=== PATIENT | male | born 1960 | race African-American/Black ===

== ENCOUNTER 2019-06-26 11:54 | Emergency (ER) | payer BC, OTHER ==
[2019-06-26 13:21] LABS: Basophils # (auto) 0.1 uL; Eosinophils % (auto) 0.9 % (0.0-7.0); Hemoglobin 13.8 g/dL (13.5-17.5); Lymphocytes # (auto) 2.1 uL; Monocytes # (auto) 0.4 uL; Monocytes % (auto) 7.2 % (0.0-12.0); White Blood Cell 5.5 10^3/uL (4.4-10.8)
[2019-06-26 13:24] LABS: Eosinophils # (auto) 0 uL; Hematocrit 41.9 % (41.0-53.0); Mean Corpuscular Hemoglobin 26.3 pg (28.0-32.0); Mean Corpuscular Hgb Conc. 32.9 g/dL (32.0-36.0); Mean Corpuscular Volume 79.9 fL (80.0-100.0); Neutrophils # (auto) 2.8 uL; Neutrophils % (auto) 51.9 % (37.0-80.0); Platelet Count (auto) 253 10^3/uL (140-450); Red Blood Cells 5.24 10^6/uL (4.5-5.90); Red Cell Distribution Width 13.5 % (11.8-14.3)
[2019-06-26 13:39] LABS: Chloride 104 mmol/L (98-107); Potassium 4.3 mmol/L (3.5-5.1); Sodium 136 mmol/L (136-145)
[2019-06-26 13:44] LABS: Alanine Aminotransferase 29 U/L (16-61); Albumin 3.7 g/dL (3.4-5.0); Anion Gap 5 (5-15); Aspartate Aminotransferase 11 U/L (15-37); BUN/Creatinine Ratio 15.4; Blood Urea Nitrogen 14 mg/dL (7-18); Calcium 8.7 mg/dL (8.5-10.1); Carbon Dioxide 27 mmol/L (21-32); GFR African American 109 mL/min; GFR Non-African American 90 mL/min
[2019-06-26 13:48] LABS: Alkaline Phosphatase 88 U/L (45-117); Bilirubin, Total 0.3 mg/dL (0.2-1.0); Total Protein 7.7 g/dL (6.4-8.2)
[2019-06-26 14:04] LABS: Glucose 405 mg/dL (74-106)
[2019-06-26] MEDS ORDERED: InsuLIN REG 1unit/0.01ml Soln (100units/ml) IV ONE (14:15)
[2019-06-26] MEDS ORDERED: SODIUM CHLORIDE 0.9% 1,000 ML IV ONE (14:15)
[2019-06-26 14:35] VITALS: BP 163/81
== END 2019-06-26 16:06 | disposition home or self-care (01) ==
LOC: ER 11:54
DX: E11.65 Type 2 diabetes mellitus with hyperglycemia (principal); R10.9 Unspecified abdominal pain; M19.90 Unspecified osteoarthritis, unspecified site; F12.10 Cannabis abuse, uncomplicated; Z87.891 Personal history of nicotine dependence
CPT/HCPCS: 36415; 70450; 71046; 80053; 83880; 84484; 85025; 93005; 96361; 96374

== ENCOUNTER 2020-04-05 15:52 | Emergency (ER) | payer BC ==
[~2020-04-05] VITALS: Ht 180.3 cm; Wt 117.0 kg
[2020-04-05 16:07] VITALS: BP 158/90
[2020-04-05] MEDS ORDERED: KETOROLAC TROMETH 60MG/2ML VIAL IM ONE (18:00)
== END 2020-04-05 18:24 | disposition home or self-care (01) ==
LOC: ER 15:52
DX: M48.061 Spinal stenosis, lumbar region without neurogenic claudication (principal); E27.8 Other specified disorders of adrenal gland; M54.16 Radiculopathy, lumbar region; E11.9 Type 2 diabetes mellitus without complications; E78.5 Hyperlipidemia, unspecified; I10 Essential (primary) hypertension; Z87.891 Personal history of nicotine dependence
CPT/HCPCS: 72131; 73562; 93005; 96372; 99284; J1885

== ENCOUNTER 2020-07-10 17:27 | Emergency (ER) | payer BC ==
[~2020-07-10] VITALS: Ht 180.3 cm; Wt 115.7 kg
[2020-07-10 22:23] VITALS: BP 145/90
[2020-07-10 22:43] LABS: Basophils # (auto) 0.1 10 ^3/uL (0-0.2); Basophils % (auto) 1.2 % (0.0-2.0); Eosinophils # (auto) 0.1 10 ^3/uL (0-0.8); Eosinophils % (auto) 1.9 % (0.0-7.0); Lymphocytes # (auto) 2.4 10 ^3/uL (0.4-5.4); Mean Corpuscular Volume 74.8 fL (80.0-100.0); Monocytes # (auto) 0.4 10 ^3/uL (0-1.3); Neutrophils # (auto) 2.5 10 ^3/uL (1.6-8.6); Nucleated Red Blood Cells % 0.1 %; Red Cell Distribution Width 16.1 % (11.8-14.3); White Blood Cell 5.5 10^3/uL (4.4-10.8)
[2020-07-10 22:45] LABS: Hematocrit 38.2 % (41.0-53.0); Hemoglobin 12.4 g/dL (13.5-17.5); Lymphocytes % (auto) 43.7 % (10.0-50.0); Mean Corpuscular Hemoglobin 24.2 pg (28.0-32.0); Mean Corpuscular Hgb Conc. 32.4 g/dL (32.0-36.0); Monocytes % (auto) 7.8 % (0.0-12.0); Neutrophils % (auto) 45.4 % (37.0-80.0); Red Blood Cells 5.11 10^6/uL (4.5-5.90)
[2020-07-10 23:28] LABS: Albumin 3.5 g/dL (3.4-5.0); Anion Gap 7 (5-15); Blood Urea Nitrogen 16 mg/dL (7-18); Calcium 8.4 mg/dL (8.5-10.1); Carbon Dioxide 24 mmol/L (21-32); Chloride 106 mmol/L (98-107); Glucose 257 mg/dL (74-106); Potassium 4.1 mmol/L (3.5-5.1); Sodium 137 mmol/L (136-145)
[2020-07-10 23:33] LABS: Alanine Aminotransferase 32 U/L (16-61); Alkaline Phosphatase 88 U/L (45-117); Aspartate Aminotransferase 12 U/L (15-37); BUN/Creatinine Ratio 19.8; Bilirubin, Total 0.4 mg/dL (0.2-1.0); GFR African American 125 mL/min; GFR Non-African American 103 mL/min; Total Protein 7.1 g/dL (6.4-8.2)
== END 2020-07-11 00:11 | disposition home or self-care (01) ==
LOC: ER 17:27
DX: J06.9 Acute upper respiratory infection, unspecified (principal); D64.9 Anemia, unspecified; E11.9 Type 2 diabetes mellitus without complications; I10 Essential (primary) hypertension; E78.5 Hyperlipidemia, unspecified; Z87.891 Personal history of nicotine dependence; Z20.822 Contact with and (suspected) exposure to COVID-19
CPT/HCPCS: 36415; 71046; 80053; 84484; 85025; 85379; 87426; 93005; 99285; U0003

== ENCOUNTER 2020-08-06 10:58 | Inpatient (IN) | payer BC ==
[~2020-08-06] VITALS: Ht 175.3 cm; Wt 118.2 kg
[2020-08-06] MEDS ORDERED: FUROSEMIDE 40 MG/4 ML VIAL IV ONE (11:15)
[2020-08-06 11:42] LABS: Basophils # (auto) 0 10 ^3/uL (0-0.2); Eosinophils # (auto) 0 10 ^3/uL (0-0.8); Mean Corpuscular Volume 75.4 fL (80.0-100.0); Monocytes # (auto) 0.6 10 ^3/uL (0-1.3)
[2020-08-06 11:44] LABS: Basophils % (auto) 0.8 % (0.0-2.0); Eosinophils % (auto) 0.8 % (0.0-7.0); Hematocrit 37.3 % (41.0-53.0); Hemoglobin 11.8 g/dL (13.5-17.5); Lymphocytes # (auto) 1.6 10 ^3/uL (0.4-5.4); Lymphocytes % (auto) 29.9 % (10.0-50.0); Mean Corpuscular Hemoglobin 23.9 pg (28.0-32.0); Mean Corpuscular Hgb Conc. 31.7 g/dL (32.0-36.0); Monocytes % (auto) 10.4 % (0.0-12.0); Neutrophils # (auto) 3.1 10 ^3/uL (1.6-8.6); Neutrophils % (auto) 58.1 % (37.0-80.0); Nucleated Red Blood Cells % 0.2 %; Platelet Count (auto) 345 10^3/uL (140-450); Red Blood Cells 4.95 10^6/uL (4.5-5.90); Red Cell Distribution Width 15.8 % (11.8-14.3); White Blood Cell 5.4 10^3/uL (4.4-10.8)
[2020-08-06 12:31] LABS: Chloride 107 mmol/L (98-107); Potassium 4.2 mmol/L (3.5-5.1); Sodium 139 mmol/L (136-145)
[2020-08-06 12:41] LABS: Alanine Aminotransferase 39 U/L (16-61); Albumin 3.1 g/dL (3.4-5.0); Alkaline Phosphatase 200 U/L (45-117); Anion Gap 9 (5-15); Aspartate Aminotransferase 22 U/L (15-37); BUN/Creatinine Ratio 13.6; Bilirubin, Total 0.3 mg/dL (0.2-1.0); Blood Urea Nitrogen 12 mg/dL (7-18); Calcium 8.8 mg/dL (8.5-10.1); Carbon Dioxide 23 mmol/L (21-32); GFR African American 113 mL/min; GFR Non-African American 94 mL/min; Glucose 366 mg/dL (74-106); Magnesium 2.2 mg/dL (1.6-2.6); Total Protein 7.1 g/dL (6.4-8.2)
[2020-08-06 12:59] LABS: Urine Bacteria NONE SEEN /hpf (None Seen); Urine Blood Negative /uL (Negative); Urine Specific Gravity 1.019 (1.001-1.035); Urine WBC 4 /hpf (0 - 3)
[2020-08-06] MEDS ORDERED: DOCUSATE SOD 100 MG CAP PO PRN (13:45)
[2020-08-06] MEDS ORDERED: ATORVASTATIN 20 MG TAB PO ONE (13:45)
[2020-08-06] MEDS ORDERED: MORPHINE SULFATE 4 MG/ML SYR/VIAL IV PRN (13:45)
[2020-08-06] MEDS ORDERED: SODIUM CHLORIDE 0.9% 1,000 ML IV SCH (13:45)
[2020-08-06] MEDS ORDERED: METOPROLOL TARTRATE 25 MG TAB PO ONE (13:45)
[2020-08-06] MEDS ORDERED: NITROGLYCERIN 0.4 MG SL TAB SL PRN ×3 (13:45)
[2020-08-06] MEDS ORDERED: ONDANSETRON HCL 4 MG/2 ML VIAL IV PRN (13:45)
[2020-08-06] MEDS ORDERED: ALUM & MAG HYDROX-SIMETH LIQ(MAALOX) 30 ML PO ONE (13:45)
[2020-08-06] MEDS ORDERED: ACETAMINOPHEN 325 MG TAB PO PRN (13:45)
[2020-08-06] MEDS ORDERED: DEXTROSE (50%) 50ML SYRG IV PRN (13:45)
[2020-08-06] MEDS ORDERED: LORazepam 0.5 MG TAB PO PRN (13:45)
[2020-08-06] MEDS ORDERED: DOXYCYCLINE 100MG/250ML 250 ML IV ONE (13:45)
[2020-08-06] MEDS ORDERED: INSULIN LANTUS (GLARGINE) 1 /0.01ml (100units/ml) SC ONE (13:45)
[2020-08-06] MEDS ORDERED: MORPHINE SULF INJ 2 MG/ML SYRINGE 1ML IV PRN ×3 (13:45)
[2020-08-06] MEDS ORDERED: GABAPENTIN 300 MG CAP PO PRN (14:00)
[2020-08-06] MEDS ORDERED: FOLIC ACID 1 MG TAB PO ONE (14:00)
[2020-08-06] MEDS ORDERED: THIAMINE 100mg/ml INJ (200mg/2ml VIAL) IV ONE (14:00)
[2020-08-06] MEDS ORDERED: ENOXAPARIN SOD 40 MG/0.4 ML SYRINGE SC ONE (14:00)
[2020-08-06] MEDS ORDERED: MULTIPLE VITAMINS W/ MINERALS TAB PO ONE (14:00)
[2020-08-06] MEDS ORDERED: LACTULOSE 20Gm/30ML SOLN PO PRN (14:00)
[2020-08-06] MEDS ORDERED: CYCL0.05 EACHEYE (14:12)
[2020-08-06] MEDS ORDERED: MET25T PO (14:13)
[2020-08-06] MEDS ORDERED: ECON1CRE6 TOP (14:13)
[2020-08-06] MEDS ORDERED: ALBU108A5 INH (14:13)
[2020-08-06] MEDS ORDERED: AMLO-496 PO (14:14)
[2020-08-06] MEDS ORDERED: DEXL60CA4 PO (14:14)
[2020-08-06] MEDS ORDERED: POM PO (14:15)
[2020-08-06] MEDS ORDERED: INSU1.2I SC (14:15)
[2020-08-06] MEDS ORDERED: MISC1CAP PO (14:21)
[2020-08-06] MEDS ORDERED: [UNRECOGNIZED DRUG - CODE] PO (14:21)
[2020-08-06] MEDS ORDERED: B CO PO (14:21)
[2020-08-06] MEDS ORDERED: NALT1TAB PO (14:22)
[2020-08-06] MEDS ORDERED: POM (14:24)
[2020-08-06] MEDS: DOXYCYCLINE 100MG/250ML 250 ML IV SCH (14:44)
[2020-08-06] MEDS: POTASSIUM CHL 20 Meq TABLET PO SCH (14:47)
[2020-08-06 15:27] VITALS: BP 131/90
[2020-08-06 15:46] LABS: % Iron Saturation 8.4 % (20-55)
[2020-08-06 17:17] LABS: Alcohol, Urine < 3.0 mg/dL (0-10); Amphetamine Screen, Urine NEGATIVE (NEGATIVE); Barbiturate Scree,Urine NEGATIVE (NEGATIVE); Benzodiazephine Screen, Urine NEGATIVE (NEGATIVE); Cocaine Screen, Urine NEGATIVE (NEGATIVE)
[2020-08-06 17:25] LABS: Cannabinoid Screen, Urine POSITIVE (NEGATIVE); Opiate Scree,Urine NEGATIVE (NEGATIVE); Phencyclidine Screen, Urine NEGATIVE (NEGATIVE)
[2020-08-06] MEDS: ACCU-CHEK COMFORT CURVE STRIP VI SCH ×2 (17:33→23:46)
[2020-08-06] MEDS ORDERED: IPRATROPIUM BROM 0.5 MG/2.5ML INH SOL NEB PRN (18:00)
[2020-08-06] MEDS ORDERED: IPRATROPIUM BROM 0.5 MG/2.5ML INH SOL NEB SCH (18:00)
[2020-08-06] MEDS: InsuLIN REG 1unit/0.01ml Soln (100units/ml) SC SCH ×2 (18:00→23:47)
[2020-08-06] MEDS: FUROSEMIDE 40 MG/4 ML VIAL IV SCH (18:05)
[2020-08-06 18:06] VITALS: BP 132/89
[2020-08-06] MEDS: ATORVASTATIN 20 MG TAB PO SCH (21:09)
[2020-08-06] MEDS: HYDROcodone-ACET 5/325MG TAB PO PRN (21:09)
[2020-08-06] MEDS: ENOXAPARIN SOD 40 MG/0.4 ML SYRINGE SC SCH (21:10)
[2020-08-06] MEDS: SACUBITRIL-VALSARTAN 24mg/26mg TAB PO SCH (21:10)
[2020-08-06] MEDS: METOPROLOL TARTRATE 25 MG TAB PO SCH (21:10)
[2020-08-06] MEDS: FAMOTIDINE (10MG/ML) 2ML VL IV SCH (21:10)
[2020-08-06] MEDS ORDERED: INSULIN LANTUS (GLARGINE) 1 /0.01ml (100units/ml) SC SCH (22:00)
[2020-08-06 22:06] VITALS: BP 103/73
[2020-08-07] MEDS: DOXYCYCLINE 100MG/250ML 250 ML IV SCH ×2 (01:48→13:15)
[2020-08-07 04:35] VITALS: BP 92/68
[2020-08-07] MEDS: FUROSEMIDE 40 MG/4 ML VIAL IV SCH ×2 (05:31→17:17)
[2020-08-07] MEDS: InsuLIN REG 1unit/0.01ml Soln (100units/ml) SC SCH ×4 (05:31→23:45)
[2020-08-07] MEDS: ACCU-CHEK COMFORT CURVE STRIP VI SCH ×4 (05:31→23:43)
[2020-08-07 06:20] LABS: Basophils # (auto) 0 10 ^3/uL (0-0.2); Eosinophils # (auto) 0.1 10 ^3/uL (0-0.8); Lymphocytes # (auto) 2.5 10 ^3/uL (0.4-5.4); Monocytes # (auto) 0.6 10 ^3/uL (0-1.3); Neutrophils # (auto) 2.5 10 ^3/uL (1.6-8.6); Nucleated Red Blood Cells % 0.1 %; White Blood Cell 5.7 10^3/uL (4.4-10.8)
[2020-08-07 06:25] LABS: Basophils % (auto) 0.7 % (0.0-2.0); Eosinophils % (auto) 1.6 % (0.0-7.0); Hematocrit 36.1 % (41.0-53.0); Hemoglobin 11.6 g/dL (13.5-17.5); Lymphocytes % (auto) 44.5 % (10.0-50.0); Mean Corpuscular Hemoglobin 24.2 pg (28.0-32.0); Mean Corpuscular Volume 75.5 fL (80.0-100.0); Monocytes % (auto) 10.3 % (0.0-12.0); Neutrophils % (auto) 42.9 % (37.0-80.0); Platelet Count (auto) 337 10^3/uL (140-450); Red Blood Cells 4.78 10^6/uL (4.5-5.90); Red Cell Distribution Width 15.9 % (11.8-14.3)
[2020-08-07 06:36] LABS: Anion Gap 6 (5-15); Calcium 8.6 mg/dL (8.5-10.1); Carbon Dioxide 28 mmol/L (21-32); Chloride 107 mmol/L (98-107); Magnesium 2.3 mg/dL (1.6-2.6); Sodium 141 mmol/L (136-145)
[2020-08-07 06:38] LABS: INR 1.13 (0.9-1.15); Partial Thromboplastin Time 28.1 sec (23.0-31.2)
[2020-08-07 08:27] LABS: Alanine Aminotransferase 38 U/L (16-61); Albumin 2.8 g/dL (3.4-5.0); Alkaline Phosphatase 227 U/L (45-117); Aspartate Aminotransferase 21 U/L (15-37); BUN/Creatinine Ratio 22.8; Bilirubin, Total 0.3 mg/dL (0.2-1.0); Blood Urea Nitrogen 21 mg/dL (7-18); Cholesterol 174 mg/dL (< 200); GFR African American 108 mL/min; GFR Non-African American 89 mL/min; Glucose 66 mg/dL (74-106); HDL Cholesterol 37 mg/dL (40-59); Phosphorus 3.5 mg/dL (2.5-4.90); Total Protein 6.7 g/dL (6.4-8.2); Triglycerides 77 mg/dL (< 150)
[2020-08-07 08:36] VITALS: BP 97/56
[2020-08-07] MEDS: METOPROLOL TARTRATE 25 MG TAB PO SCH (10:00)
[2020-08-07] MEDS ORDERED: LISINOPRIL 5 MG TAB PO SCH (10:00)
[2020-08-07] MEDS ORDERED: ADENOSINE 99 MG in GIVE UN-DILUTED 0 ML IV STA (10:00)
[2020-08-07] MEDS: SACUBITRIL-VALSARTAN 24mg/26mg TAB PO SCH ×2 (10:00→21:00)
[2020-08-07] MEDS ORDERED: DOCUSATE SOD 100 MG CAP PO SCH (10:00)
[2020-08-07] MEDS: FAMOTIDINE (10MG/ML) 2ML VL IV SCH (11:40)
[2020-08-07] MEDS: ENOXAPARIN SOD 40 MG/0.4 ML SYRINGE SC SCH (11:40)
[2020-08-07] MEDS: ASPirin 81 mg TAB PO SCH (11:40)
[2020-08-07] MEDS: THIAMINE HCL 100 MG TAB PO SCH (11:40)
[2020-08-07] MEDS: MULTIPLE VITAMINS W/ MINERALS TAB PO SCH (11:41)
[2020-08-07] MEDS: POTASSIUM CHL 20 Meq TABLET PO SCH (11:41)
[2020-08-07] MEDS: FOLIC ACID 1 MG TAB PO SCH (11:41)
[2020-08-07 12:30] VITALS: BP 141/90
[2020-08-07 13:36] LABS: LDL Cholesterol 121 mg/dL (< 100)
[2020-08-07 17:00] VITALS: BP 124/79
[2020-08-07 20:00] VITALS: BP 115/58
[2020-08-07] MEDS: ATORVASTATIN 20 MG TAB PO SCH (21:01)
[2020-08-07] MEDS: HYDROcodone-ACET 5/325MG TAB PO PRN (21:02)
[2020-08-07 21:36] VITALS: BP 115/58
[2020-08-07] MEDS ORDERED: METOPROLOL TARTRATE 25 MG TAB PO SCH (22:00)
[2020-08-08] MEDS: DOXYCYCLINE 100MG/250ML 250 ML IV SCH (01:34)
[2020-08-08 05:00] VITALS: BP 124/77
[2020-08-08] MEDS: FUROSEMIDE 40 MG/4 ML VIAL IV SCH ×2 (05:45→17:41)
[2020-08-08] MEDS: ACCU-CHEK COMFORT CURVE STRIP VI SCH ×4 (05:45→23:31)
[2020-08-08] MEDS: HYDROcodone-ACET 5/325MG TAB PO PRN ×3 (05:46→21:40)
[2020-08-08] MEDS: InsuLIN REG 1unit/0.01ml Soln (100units/ml) SC SCH ×4 (05:52→23:35)
[2020-08-08 09:00] VITALS: BP 122/72
[2020-08-08] MEDS: ASPirin 81 mg TAB PO SCH (10:08)
[2020-08-08] MEDS: FOLIC ACID 1 MG TAB PO SCH (10:08)
[2020-08-08] MEDS: THIAMINE HCL 100 MG TAB PO SCH (10:09)
[2020-08-08] MEDS: CARVEDILOL 3.125 MG TAB PO SCH (10:10)
[2020-08-08] MEDS: POTASSIUM CHL 20 Meq TABLET PO SCH (10:10)
[2020-08-08] MEDS: SACUBITRIL-VALSARTAN 24mg/26mg TAB PO SCH ×2 (10:10→21:37)
[2020-08-08] MEDS: PANTOPRAZOLE 40 MG TAB PO SCH (10:11)
[2020-08-08] MEDS: ENOXAPARIN SOD 40 MG/0.4 ML SYRINGE SC SCH (10:11)
[2020-08-08] MEDS: MULTIPLE VITAMINS W/ MINERALS TAB PO SCH (10:11)
[2020-08-08 13:00] VITALS: BP 114/73
[2020-08-08] MEDS: IPRATROPIUM BROM 0.5 MG/2.5ML INH SOL NEB SCH ×2 (13:02→18:59)
[2020-08-08] MEDS: ALBUTEROL SULF 2.5 MG/0.5ML(0.5%) NEB SOLN NEB SCH ×2 (13:02→18:59)
[2020-08-08 17:18] VITALS: BP 127/79
[2020-08-08] MEDS: ATORVASTATIN 20 MG TAB PO SCH (21:38)
[2020-08-08 22:00] VITALS: BP 102/60
[2020-08-09] MEDS: ALBUTEROL SULF 2.5 MG/0.5ML(0.5%) NEB SOLN NEB SCH ×4 (00:43→17:57)
[2020-08-09] MEDS: IPRATROPIUM BROM 0.5 MG/2.5ML INH SOL NEB SCH ×4 (00:43→17:57)
[2020-08-09 04:58] VITALS: BP 104/58
[2020-08-09] MEDS: FUROSEMIDE 40 MG/4 ML VIAL IV SCH ×2 (05:30→17:42)
[2020-08-09] MEDS: InsuLIN REG 1unit/0.01ml Soln (100units/ml) SC SCH ×3 (05:40→17:44)
[2020-08-09] MEDS: ACCU-CHEK COMFORT CURVE STRIP VI SCH ×3 (05:41→17:42)
[2020-08-09] MEDS: HYDROcodone-ACET 5/325MG TAB PO PRN (05:41)
[2020-08-09 06:16] LABS: BUN/Creatinine Ratio 19.3; Calcium 8.9 mg/dL (8.5-10.1); Potassium 3.8 mmol/L (3.5-5.1)
[2020-08-09 09:00] VITALS: BP 106/69
[2020-08-09] MEDS ORDERED: INSULIN LANTUS (GLARGINE) 1 /0.01ml (100units/ml) SC SCH (10:00)
[2020-08-09] MEDS: CARVEDILOL 3.125 MG TAB PO SCH (10:15)
[2020-08-09] MEDS: ASPirin 81 mg TAB PO SCH (10:15)
[2020-08-09] MEDS: PANTOPRAZOLE 40 MG TAB PO SCH (10:16)
[2020-08-09] MEDS: MULTIPLE VITAMINS W/ MINERALS TAB PO SCH (10:16)
[2020-08-09] MEDS: SACUBITRIL-VALSARTAN 24mg/26mg TAB PO SCH (10:16)
[2020-08-09] MEDS: POTASSIUM CHL 20 Meq TABLET PO SCH (10:16)
[2020-08-09] MEDS: ENOXAPARIN SOD 40 MG/0.4 ML SYRINGE SC SCH (10:17)
[2020-08-09 12:59] VITALS: BP 115/77
[2020-08-09 16:27] VITALS: BP 115/77
[2020-08-09 17:00] VITALS: BP 133/84
== END 2020-08-09 21:00 | disposition home or self-care (01) | DRG 291 ==
LOC: ER 10:58 → TELE 13:33 → TELE-WESTW 17:33
PROVIDERS: ADMIT Hospitalist; ATTEND Internal Medicine
DX: I11.0 Hypertensive heart disease with heart failure (principal); J18.9 Pneumonia, unspecified organism; J96.00 Acute respiratory failure, unspecified whether with hypoxia or hypercapnia; E44.0 Moderate protein-calorie malnutrition; F11.20 Opioid dependence, uncomplicated; J44.0 Chronic obstructive pulmonary disease with (acute) lower respiratory infection; J44.1 Chronic obstructive pulmonary disease with (acute) exacerbation; I50.43 Acute on chronic combined systolic (congestive) and diastolic (congestive) heart failure; D63.8 Anemia in other chronic diseases classified elsewhere; E11.65 Type 2 diabetes mellitus with hyperglycemia; E66.01 Morbid (severe) obesity due to excess calories; Z68.38 Body mass index [BMI] 38.0-38.9, adult; E78.5 Hyperlipidemia, unspecified; F12.90 Cannabis use, unspecified, uncomplicated; E11.42 Type 2 diabetes mellitus with diabetic polyneuropathy; G89.29 Other chronic pain; I27.21 Secondary pulmonary arterial hypertension; I42.8 Other cardiomyopathies; M48.061 Spinal stenosis, lumbar region without neurogenic claudication; Z20.822 Contact with and (suspected) exposure to COVID-19; Z79.4 Long term (current) use of insulin; Z79.899 Other long term (current) drug therapy; Z82.49 Family history of ischemic heart disease and other diseases of the circulatory system; Z87.891 Personal history of nicotine dependence; F14.10 Cocaine abuse, uncomplicated; F41.9 Anxiety disorder, unspecified; M19.90 Unspecified osteoarthritis, unspecified site; I42.0 Dilated cardiomyopathy
CPT/HCPCS: 36415; 71045; 78452; 78582; 80048; 80053; 80061; 80307; 81001; 82306; 82962; 83036; 83540; 83550; 83735; 83880; 84100; 84443; 84484; 85025; 85379; 85610; 85730; 87040; 87086; 87088; 87426; 93005; 93017; 93306; 93970; 94640; 96365; 96366; 96372; 96375; 96376; G0378; J0153; J1815; J3490

== ENCOUNTER 2020-09-19 08:00 | Outpatient (CLI) | payer BC ==
[~2020-09-19 08:00] MED LIST: ALBU108A5 INH; AMLO-496 PO; B CO PO; CYCL0.05 EACHEYE; DEXL60CA4 PO; ECON1CRE6 TOP; INSU1.2I SC; MET25T PO; MISC1CAP PO; NALT1TAB PO; POM; POM PO; [UNRECOGNIZED DRUG - CODE] PO
== END 2020-09-19 08:15 | disposition home or self-care (01) ==
LOC: XYW 08:00
PROVIDERS: ATTEND Internal Medicine
DX: I50.22 Chronic systolic (congestive) heart failure (principal)
CPT/HCPCS: 93306

== ENCOUNTER 2020-12-17 18:00 | Inpatient (IN) | payer BC ==
[~2020-12-17] VITALS: Ht 180.3 cm; Wt 94.2 kg
[2020-12-17] MEDS ORDERED: ASPirin 81 mg TAB PO ONE (18:30)
[2020-12-17 19:17] LABS: Basophils # (auto) 0 10 ^3/uL (0-0.2); Monocytes # (auto) 0.5 10 ^3/uL (0-1.3); Red Cell Distribution Width 14.5 % (11.8-14.3)
[2020-12-17 19:19] LABS: Basophils % (auto) 0.7 % (0.0-2.0); Eosinophils # (auto) 0.1 10 ^3/uL (0-0.8); Eosinophils % (auto) 1.1 % (0.0-7.0); Hematocrit 44.7 % (41.0-53.0); Lymphocytes % (auto) 38.8 % (10.0-50.0); Mean Corpuscular Hemoglobin 26.9 pg (28.0-32.0); Mean Corpuscular Hgb Conc. 33.5 g/dL (32.0-36.0); Mean Corpuscular Volume 80.4 fL (80.0-100.0); Monocytes % (auto) 10.1 % (0.0-12.0); Neutrophils # (auto) 2.5 10 ^3/uL (1.6-8.6); Neutrophils % (auto) 49.3 % (37.0-80.0); Nucleated Red Blood Cells % 0.1 %; Red Blood Cells 5.56 10^6/uL (4.5-5.90); White Blood Cell 5.1 10^3/uL (4.4-10.8)
[2020-12-17 19:24] LABS: Albumin 3.3 g/dL (3.4-5.0); Anion Gap 6 (5-15); Blood Urea Nitrogen 12 mg/dL (7-18); Calcium 9.1 mg/dL (8.5-10.1); Carbon Dioxide 26 mmol/L (21-32); Chloride 106 mmol/L (98-107); Potassium 4.4 mmol/L (3.5-5.1); Sodium 138 mmol/L (136-145)
[2020-12-17 19:27] LABS: Alanine Aminotransferase 23 U/L (16-61); Aspartate Aminotransferase 12 U/L (15-37); BUN/Creatinine Ratio 13.3; GFR African American 110 mL/min; GFR Non-African American 91 mL/min; Glucose 243 mg/dL (74-106)
[2020-12-17 19:33] LABS: Alkaline Phosphatase 118 U/L (45-117); Bilirubin, Total 0.5 mg/dL (0.2-1.0); Total Protein 7.9 g/dL (6.4-8.2)
[2020-12-17] MEDS ORDERED: NITROGLYCERIN 0.4 MG SL TAB SL PRN (22:15)
[2020-12-17] MEDS ORDERED: DOCUSATE SOD 100 MG CAP PO PRN (22:15)
[2020-12-17] MEDS ORDERED: MORPHINE SULFATE INJECTION 2 MG/2 ML SYRG IV PRN (22:15)
[2020-12-17] MEDS ORDERED: DEXTROSE (50%) 50ML SYRG IV PRN (22:15)
[2020-12-17] MEDS ORDERED: ACETAMINOPHEN 325 MG TAB PO PRN (22:15)
[2020-12-17] MEDS ORDERED: ONDANSETRON HCL 4 MG/2 ML VIAL IV PRN (22:15)
[2020-12-18 04:31] LABS: Basophils # (auto) 0 10 ^3/uL (0-0.2); Eosinophils # (auto) 0.1 10 ^3/uL (0-0.8); Eosinophils % (auto) 1.4 % (0.0-7.0); Hematocrit 39.3 % (41.0-53.0); Hemoglobin 13.1 g/dL (13.5-17.5); Lymphocytes # (auto) 2.2 10 ^3/uL (0.4-5.4); Lymphocytes % (auto) 43.8 % (10.0-50.0); Mean Corpuscular Hgb Conc. 33.3 g/dL (32.0-36.0); Mean Corpuscular Volume 81.2 fL (80.0-100.0); Monocytes # (auto) 0.5 10 ^3/uL (0-1.3); Monocytes % (auto) 10.3 % (0.0-12.0); Neutrophils # (auto) 2.1 10 ^3/uL (1.6-8.6); Neutrophils % (auto) 43.5 % (37.0-80.0); Nucleated Red Blood Cells % 0.1 %; Red Blood Cells 4.84 10^6/uL (4.5-5.90); Red Cell Distribution Width 14.2 % (11.8-14.3); White Blood Cell 4.9 10^3/uL (4.4-10.8)
[2020-12-18 04:54] LABS: Calcium 8.9 mg/dL (8.5-10.1); Potassium 3.9 mmol/L (3.5-5.1)
[2020-12-18 05:00] LABS: Albumin 2.9 g/dL (3.4-5.0); BUN/Creatinine Ratio 19.3; Bilirubin, Total 0.2 mg/dL (0.2-1.0); Total Protein 6.7 g/dL (6.4-8.2)
[2020-12-18] MEDS: SODIUM CHLOR 0.9% PF (SALINE LOCK) 10ML VIAL/SYR IV SCH ×3 (06:05→22:00)
[2020-12-18] MEDS: InsuLIN REG 1unit/0.01ml Soln (100units/ml) SC SCH ×4 (06:47→22:00)
[2020-12-18] MEDS: ACCU-CHEK COMFORT CURVE STRIP VI SCH ×4 (06:47→22:00)
[2020-12-18] MEDS: HYDROcodone-ACET 5/325MG TAB PO PRN ×2 (08:28→23:18)
[2020-12-18] MEDS: ENOXAPARIN SOD 40 MG/0.4 ML SYRINGE SC SCH (10:03)
[2020-12-18] MEDS: FUROSEMIDE 40 MG/4 ML VIAL IV SCH (10:04)
[2020-12-18] MEDS: FAMOTIDINE (10MG/ML) 2ML VL IV SCH ×2 (10:04→23:17)
[2020-12-18] MEDS: ASPirin 81 mg TAB PO SCH (10:04)
[2020-12-18] MEDS: MULTIPLE VITAMIN TAB PO SCH (10:05)
[2020-12-18] MEDS: ZINC SULFATE 220mg CAP or TAB PO SCH (10:05)
[2020-12-18] MEDS: ASCORBIC ACID 500 MG TAB PO SCH ×2 (10:05→23:17)
[2020-12-18] MEDS ORDERED: PIPERACILLIN-TAZOB 3.375GM 100 ML IV ONE (11:15)
[2020-12-18] MEDS ORDERED: POTASSIUM EFFERVESENT TAB 25 MEQ PO ONE (21:45)
[2020-12-18] MEDS: PIPERACILLIN-TAZOB 3.375GM 100 ML IV SCH (23:17)
[2020-12-19] MEDS: SODIUM CHLOR 0.9% PF (SALINE LOCK) 10ML VIAL/SYR IV SCH ×3 (05:30→21:54)
[2020-12-19] MEDS: PIPERACILLIN-TAZOB 3.375GM 100 ML IV SCH ×3 (05:30→22:00)
[2020-12-19] MEDS: ACCU-CHEK COMFORT CURVE STRIP VI SCH ×4 (06:04→21:55)
[2020-12-19] MEDS: InsuLIN REG 1unit/0.01ml Soln (100units/ml) SC SCH ×4 (06:41→21:59)
[2020-12-19] MEDS: HYDROcodone-ACET 5/325MG TAB PO PRN ×2 (09:48→19:39)
[2020-12-19] MEDS: ZINC SULFATE 220mg CAP or TAB PO SCH (10:07)
[2020-12-19] MEDS: POTASSIUM EFFERVESENT TAB 25 MEQ PO SCH (10:07)
[2020-12-19] MEDS: FUROSEMIDE 40 MG/4 ML VIAL IV SCH (10:08)
[2020-12-19] MEDS: ASCORBIC ACID 500 MG TAB PO SCH ×2 (10:08→22:00)
[2020-12-19] MEDS: MULTIPLE VITAMIN TAB PO SCH (10:08)
[2020-12-19] MEDS: ENOXAPARIN SOD 40 MG/0.4 ML SYRINGE SC SCH (10:08)
[2020-12-19] MEDS: ASPirin 81 mg TAB PO SCH (10:08)
[2020-12-19] MEDS: FAMOTIDINE (10MG/ML) 2ML VL IV SCH ×2 (10:08→22:00)
[2020-12-19 20:00] VITALS: BP 132/87
[2020-12-19 22:00] VITALS: BP 132/87
[2020-12-20 05:00] VITALS: BP 144/90
[2020-12-20] MEDS: SODIUM CHLOR 0.9% PF (SALINE LOCK) 10ML VIAL/SYR IV SCH ×3 (05:51→22:00)
[2020-12-20] MEDS: PIPERACILLIN-TAZOB 3.375GM 100 ML IV SCH ×3 (05:51→22:00)
[2020-12-20] MEDS: ACCU-CHEK COMFORT CURVE STRIP VI SCH ×3 (06:46→17:50)
[2020-12-20] MEDS: InsuLIN REG 1unit/0.01ml Soln (100units/ml) SC SCH ×3 (06:49→17:50)
[2020-12-20 09:00] VITALS: BP 147/83
[2020-12-20] MEDS: FAMOTIDINE (10MG/ML) 2ML VL IV SCH ×2 (09:18→22:00)
[2020-12-20] MEDS: POTASSIUM EFFERVESENT TAB 25 MEQ PO SCH (09:19)
[2020-12-20] MEDS: ASPirin 81 mg TAB PO SCH (09:19)
[2020-12-20] MEDS: ZINC SULFATE 220mg CAP or TAB PO SCH (09:19)
[2020-12-20] MEDS: ENOXAPARIN SOD 40 MG/0.4 ML SYRINGE SC SCH (09:19)
[2020-12-20] MEDS: MULTIPLE VITAMIN TAB PO SCH (09:19)
[2020-12-20] MEDS: ASCORBIC ACID 500 MG TAB PO SCH (09:19)
[2020-12-20] MEDS: HYDROcodone-ACET 5/325MG TAB PO PRN ×2 (09:21→17:48)
[2020-12-20] MEDS: FUROSEMIDE 40 MG/4 ML VIAL IV SCH (09:23)
[2020-12-20 13:00] VITALS: BP 127/79
[2020-12-20] MEDS ORDERED: DEXTROSE (50%) 50ML SYRG IV PRN (13:45)
[2020-12-20] MEDS ORDERED: IOHEXOL 350 MG/ML 100ML IJ ONE ×2 (14:43→15:37)
[2020-12-20] MEDS ORDERED: LIDOCAINE 2%HCL (LOCAL ANESTH.) INJ 20ML MDV ONE (14:43)
[2020-12-20] MEDS ORDERED: ANGIOMAX 250 MG VIAL IV ONE (14:47)
[2020-12-20] MEDS ORDERED: fentaNYL CITRATE 100 MCG/2 ML VL ONE (14:47)
[2020-12-20] MEDS ORDERED: SODIUM CHL 0.9% 50 ML ONE (14:48)
[2020-12-20] MEDS ORDERED: MIDAZOLAM HCL 2MG/2ML 2ml VIAL (1mg/ml) ONE (14:48)
[2020-12-20] MEDS ORDERED: diphenhdrAMINE HCL 50 MG/1 ML VL ONE (15:05)
[2020-12-20] MEDS ORDERED: TICAGRELOR 90 MG TAB ONE (15:48)
[2020-12-20] MEDS ORDERED: FAMOTIDINE (10MG/ML) 2ML VL IV ONE ×2 (16:15→16:16)
[2020-12-20 16:22] LABS: INR 1.09 (0.9-1.15); Partial Thromboplastin Time 26.6 sec (23.6-33.0)
[2020-12-20 17:08] VITALS: BP 116/56
[2020-12-20 20:00] VITALS: BP 112/72
[2020-12-20 22:00] VITALS: BP 112/72
[2020-12-20] MEDS: TICAGRELOR 90 MG TAB PO SCH (22:00)
[2020-12-21] MEDS: InsuLIN REG 1unit/0.01ml Soln (100units/ml) SC SCH ×4 (00:41→18:14)
[2020-12-21] MEDS: ACCU-CHEK COMFORT CURVE STRIP VI SCH ×4 (00:46→18:16)
[2020-12-21 05:00] VITALS: BP 123/79
[2020-12-21] MEDS: SODIUM CHLOR 0.9% PF (SALINE LOCK) 10ML VIAL/SYR IV SCH ×3 (06:46→20:43)
[2020-12-21] MEDS: PIPERACILLIN-TAZOB 3.375GM 100 ML IV SCH ×3 (06:46→20:43)
[2020-12-21 07:41] LABS: Basophils # (auto) 0 10 ^3/uL (0-0.2); Eosinophils # (auto) 0 10 ^3/uL (0-0.8); Lymphocytes # (auto) 0.9 10 ^3/uL (0.4-5.4); Mean Corpuscular Hemoglobin 26.8 pg (28.0-32.0)
[2020-12-21 07:43] LABS: Basophils % (auto) 0.7 % (0.0-2.0); Eosinophils % (auto) 0.6 % (0.0-7.0); Hematocrit 44.4 % (41.0-53.0); Hemoglobin 14.8 g/dL (13.5-17.5); Lymphocytes % (auto) 19.2 % (10.0-50.0); Mean Corpuscular Hgb Conc. 33.4 g/dL (32.0-36.0); Mean Corpuscular Volume 80.2 fL (80.0-100.0); Monocytes # (auto) 0.4 10 ^3/uL (0-1.3); Monocytes % (auto) 9.6 % (0.0-12.0); Neutrophils # (auto) 3.1 10 ^3/uL (1.6-8.6); Neutrophils % (auto) 69.9 % (37.0-80.0); Red Blood Cells 5.54 10^6/uL (4.5-5.90); White Blood Cell 4.5 10^3/uL (4.4-10.8)
[2020-12-21 08:04] LABS: Calcium 8.5 mg/dL (8.5-10.1); Potassium 3.6 mmol/L (3.5-5.1)
[2020-12-21 08:06] LABS: BUN/Creatinine Ratio 26.1
[2020-12-21 09:47] VITALS: BP 117/67
[2020-12-21] MEDS: ASPirin 81 mg TAB PO SCH (10:33)
[2020-12-21] MEDS: FAMOTIDINE (10MG/ML) 2ML VL IV SCH ×2 (10:33→20:43)
[2020-12-21] MEDS: TICAGRELOR 90 MG TAB PO SCH ×2 (10:34→20:44)
[2020-12-21] MEDS: MULTIPLE VITAMIN TAB PO SCH (10:34)
[2020-12-21 13:00] VITALS: BP 124/77
[2020-12-21 16:54] VITALS: BP 115/86
[2020-12-21] MEDS: HYDROcodone-ACET 5/325MG TAB PO PRN (18:25)
[2020-12-21 20:00] VITALS: BP 146/86
[2020-12-22] MEDS: ACCU-CHEK COMFORT CURVE STRIP VI SCH ×3 (01:36→12:07)
[2020-12-22] MEDS: InsuLIN REG 1unit/0.01ml Soln (100units/ml) SC SCH ×3 (01:41→12:06)
[2020-12-22 05:30] VITALS: BP 99/61
[2020-12-22] MEDS: SODIUM CHLOR 0.9% PF (SALINE LOCK) 10ML VIAL/SYR IV SCH ×2 (05:44→13:47)
[2020-12-22] MEDS: PIPERACILLIN-TAZOB 3.375GM 100 ML IV SCH ×2 (05:47→13:47)
[2020-12-22 08:40] VITALS: BP 131/87
[2020-12-22] MEDS: ASPirin 81 mg TAB PO SCH (09:47)
[2020-12-22] MEDS: MULTIPLE VITAMIN TAB PO SCH (09:47)
[2020-12-22] MEDS: FAMOTIDINE (10MG/ML) 2ML VL IV SCH (09:48)
[2020-12-22] MEDS: TICAGRELOR 90 MG TAB PO SCH (09:48)
[2020-12-22 12:43] VITALS: BP 124/91
[2020-12-22 15:43] VITALS: BP 147/83
[2020-12-22 15:44] VITALS: BP 147/83
[2020-12-22 17:00] VITALS: BP 124/81
== END 2020-12-22 19:50 | disposition home or self-care (01) | DRG 246 ==
LOC: ER 18:02 → TELE 22:10 → TELE-WESTW 12-19 13:54
PROVIDERS: ADMIT Nurse Practitioner Family; ATTEND Internal Medicine Nephrology
PROC: 4A023N7 Measurement of Cardiac Sampling and Pressure, Left Heart, Percutaneous Approach (ICD-10-PCS; principal; 2020-12-20)
PROC: 027034Z Dilation of Coronary Artery, One Artery with Drug-eluting Intraluminal Device, Percutaneous Approach (ICD-10-PCS; 2020-12-20)
PROC: B2111ZZ Fluoroscopy of Multiple Coronary Arteries using Low Osmolar Contrast (ICD-10-PCS; 2020-12-20)
PROC: B2151ZZ Fluoroscopy of Left Heart using Low Osmolar Contrast (ICD-10-PCS; 2020-12-20)
DX: I25.10 Atherosclerotic heart disease of native coronary artery without angina pectoris (principal); J15.6 Pneumonia due to other Gram-negative bacteria; I50.23 Acute on chronic systolic (congestive) heart failure; I24.9 Acute ischemic heart disease, unspecified; J98.11 Atelectasis; I42.9 Cardiomyopathy, unspecified; F41.9 Anxiety disorder, unspecified; M19.90 Unspecified osteoarthritis, unspecified site; E11.51 Type 2 diabetes mellitus with diabetic peripheral angiopathy without gangrene; E11.621 Type 2 diabetes mellitus with foot ulcer; E11.65 Type 2 diabetes mellitus with hyperglycemia; E88.09 Other disorders of plasma-protein metabolism, not elsewhere classified; E78.5 Hyperlipidemia, unspecified; F12.10 Cannabis abuse, uncomplicated; F17.200 Nicotine dependence, unspecified, uncomplicated; I11.0 Hypertensive heart disease with heart failure; Z20.822 Contact with and (suspected) exposure to COVID-19; L97.509 Non-pressure chronic ulcer of other part of unspecified foot with unspecified severity; N62 Hypertrophy of breast; R09.02 Hypoxemia; Z83.3 Family history of diabetes mellitus; Z95.5 Presence of coronary angioplasty implant and graft; Z95.810 Presence of automatic (implantable) cardiac defibrillator
CPT/HCPCS: 36415; 71045; 71250; 73718; 80048; 80053; 82962; 83036; 83735; 83880; 84484; 85025; 85379; 85610; 85730; 87077; 87081; 87186; 87205; 87426; 93005; 93926; 96365; 96372; 96375; 99152; 99153; 99291; C1874; C1887; G0378; J1815; J2250; J2405; J2543; J3490

== ENCOUNTER 2021-03-03 08:08 | Day surgery (SDC) | payer BC ==
[2021-03-03] VITALS (11 sets, daily range): BP systolic 115–145; BP diastolic 77–101
[~2021-03-03] VITALS: Ht 180.3 cm; Wt 113.4 kg
[~2021-03-03 08:08] MED LIST changes: -ALBU108A5 INH; -MISC1CAP PO
[2021-03-03] MEDS ORDERED: LIDOCAINE 2%HCL (LOCAL ANESTH.) INJ 20ML MDV ONE (09:07)
[2021-03-03] MEDS ORDERED: IODIXANOL 320MG/ML 100ML BTL IV ONE ×3 (09:08→10:22)
[2021-03-03] MEDS ORDERED: HEPARIN SODIUM (PORCINE) 5000 UNITS/ML 1ML VIAL ONE (09:18)
[2021-03-03] MEDS ORDERED: ANGIOMAX 250 MG VIAL IV ONE ×2 (09:18→10:26)
[2021-03-03] MEDS ORDERED: MIDAZOLAM HCL 2MG/2ML 2ml VIAL (1mg/ml) ONE ×2 (09:19→10:11)
[2021-03-03] MEDS ORDERED: VERAPAMIL 2.5MG/ML INJ 2ML VIAL IV ONE (09:19)
[2021-03-03] MEDS ORDERED: SODIUM CHL 0.9% 50 ML ONE ×2 (09:19→10:26)
[2021-03-03] MEDS ORDERED: fentaNYL CITRATE 100 MCG/2 ML VL ONE (09:19)
[2021-03-03] MEDS ORDERED: CLOPIDOGREL 300 MG TAB ONE (10:38)
[2021-03-03] MEDS ORDERED: CLOPIDOGREL 300 MG TAB PO ONE (11:00)
[2021-03-04] MEDS ORDERED: CLOPIDOGREL BISULFATE 75 MG TAB PO SCH (10:00)
== END 2021-03-03 14:47 | disposition home or self-care (01) ==
LOC: CATH 08:08
PROVIDERS: ATTEND Internal Medicine
DX: I25.10 Atherosclerotic heart disease of native coronary artery without angina pectoris (principal); I50.42 Chronic combined systolic (congestive) and diastolic (congestive) heart failure; I25.5 Ischemic cardiomyopathy; F41.9 Anxiety disorder, unspecified; F17.200 Nicotine dependence, unspecified, uncomplicated; Z79.82 Long term (current) use of aspirin; Z20.822 Contact with and (suspected) exposure to COVID-19; Z98.890 Other specified postprocedural states; Z79.899 Other long term (current) drug therapy
CPT/HCPCS: 92978; 93458; C1726; C1769; C1874; C1887; C1894; C9600; C9604; J0583; J1644; J2250; J3010; J7030; Q9967; U0003; 99152; 99153

== ENCOUNTER 2021-03-31 18:20 | Emergency (ER) | payer BC ==
[~2021-03-31] VITALS: Ht 180.3 cm; Wt 113.4 kg
[2021-03-31] MEDS ORDERED: FUROSEMIDE 20 MG TAB PO ONE (21:45)
[2021-03-31] MEDS ORDERED: HYDROcodone-ACET 7.5/325MG TAB PO ONE (21:45)
[2021-03-31 23:28] LABS: Basophils # (auto) 0 10 ^3/uL (0-0.2); Basophils % (auto) 0.7 % (0.0-2.0); Eosinophils # (auto) 0.1 10 ^3/uL (0-0.8); Mean Corpuscular Hgb Conc. 32.1 g/dL (32.0-36.0); Monocytes # (auto) 0.4 10 ^3/uL (0-1.3); Neutrophils # (auto) 2.8 10 ^3/uL (1.6-8.6)
[2021-03-31 23:30] LABS: Eosinophils % (auto) 1.3 % (0.0-7.0); Hemoglobin 12.5 g/dL (13.5-17.5); Lymphocytes # (auto) 1.9 10 ^3/uL (0.4-5.4); Mean Corpuscular Hemoglobin 26.1 pg (28.0-32.0); Mean Corpuscular Volume 81.4 fL (80.0-100.0); Monocytes % (auto) 7.9 % (0.0-12.0); Neutrophils % (auto) 53.1 % (37.0-80.0); Nucleated Red Blood Cells % 0.1 %; Red Cell Distribution Width 14.8 % (11.8-14.3); White Blood Cell 5.3 10^3/uL (4.4-10.8)
[2021-03-31 23:48] LABS: Albumin 3.4 g/dL (3.4-5.0); BUN/Creatinine Ratio 28.4; Calcium 8.5 mg/dL (8.5-10.1); Potassium 4.3 mmol/L (3.5-5.1)
[2021-03-31 23:51] LABS: Bilirubin, Total 0.5 mg/dL (0.2-1.0); Total Protein 6.7 g/dL (6.4-8.2)
[2021-04-01 01:10] VITALS: BP 146/99
== END 2021-04-01 01:28 | disposition home or self-care (01) ==
LOC: ER 18:21
DX: I87.2 Venous insufficiency (chronic) (peripheral) (principal); I11.0 Hypertensive heart disease with heart failure; I50.9 Heart failure, unspecified; E78.5 Hyperlipidemia, unspecified; E11.9 Type 2 diabetes mellitus without complications; F12.10 Cannabis abuse, uncomplicated; Z87.891 Personal history of nicotine dependence
CPT/HCPCS: 36415; 80053; 85025; 93970

== ENCOUNTER → 2021-06-17 | Outpatient (CLI) | payer BC | END | disposition home or self-care (01) | LOC: XYW 10:58 | PROVIDERS: ATTEND Internal Medicine | DX: I08.3 Combined rheumatic disorders of mitral, aortic and tricuspid valves (principal); I50.42 Chronic combined systolic (congestive) and diastolic (congestive) heart failure; I25.5 Ischemic cardiomyopathy; I25.10 Atherosclerotic heart disease of native coronary artery without angina pectoris | CPT/HCPCS: 93306 ==

== ENCOUNTER 2022-05-19 11:48 | Emergency (ER) | payer BC ==
[~2022-05-19] VITALS: Ht 180.3 cm; Wt 90.9 kg
[2022-05-19 13:10] LABS: Basophils # (auto) 0 10 ^3/uL (0-0.2); Basophils % (auto) 0.6 % (0.0-2.0); Eosinophils # (auto) 0 10 ^3/uL (0-0.8); Eosinophils % (auto) 0.5 % (0.0-7.0); Hemoglobin 14.7 g/dL (13.5-17.5); Lymphocytes # (auto) 1.4 10 ^3/uL (0.4-5.4); Lymphocytes % (auto) 22.1 % (10.0-50.0); Mean Corpuscular Volume 87.4 fL (80.0-100.0); Monocytes # (auto) 0.5 10 ^3/uL (0-1.3); Monocytes % (auto) 8.5 % (0.0-12.0); Neutrophils # (auto) 4.2 10 ^3/uL (1.6-8.6); Neutrophils % (auto) 68.3 % (37.0-80.0); Nucleated Red Blood Cells % 0.1 %; Red Blood Cells 5.26 10^6/uL (4.5-5.90); Red Cell Distribution Width 13.6 % (11.8-14.3); White Blood Cell 6.1 10^3/uL (4.4-10.8)
[2022-05-19 13:17] LABS: Albumin 3.3 g/dL (3.4-5.0); BUN/Creatinine Ratio 15.2; Calcium 9.4 mg/dL (8.5-10.1); Potassium 4.6 mmol/L (3.5-5.1)
[2022-05-19 13:20] LABS: Bilirubin, Total 0.6 mg/dL (0.2-1.0); Total Protein 7.2 g/dL (6.4-8.2)
[2022-05-19 14:25] VITALS: BP 140/83
[2022-05-19] MEDS ORDERED: FUROSEMIDE 40 MG/4 ML VIAL IV ONE (14:45)
[2022-05-19 15:36] LABS: Urine Bacteria FEW /hpf (None Seen); Urine Blood TRACE /uL (Negative); Urine Specific Gravity 1.041 (1.001-1.035); Urine Sperm PRESENT /hpf (None Seen); Urine WBC 1 /hpf (0 - 3)
== END 2022-05-19 16:29 | disposition home or self-care (01) ==
LOC: ER 11:48 → EDBD 11:48 → ER 16:29
DX: R06.00 Dyspnea, unspecified (principal); G31.84 Mild cognitive impairment of uncertain or unknown etiology; I25.10 Atherosclerotic heart disease of native coronary artery without angina pectoris; F41.9 Anxiety disorder, unspecified; E78.5 Hyperlipidemia, unspecified; I13.0 Hypertensive heart and chronic kidney disease with heart failure and stage 1 through stage 4 chronic kidney disease, or unspecified chronic kidney disease; E10.22 Type 1 diabetes mellitus with diabetic chronic kidney disease; N18.9 Chronic kidney disease, unspecified; I50.89 Other heart failure; F12.90 Cannabis use, unspecified, uncomplicated; Z98.890 Other specified postprocedural states; Z87.891 Personal history of nicotine dependence; Z20.822 Contact with and (suspected) exposure to COVID-19
CPT/HCPCS: 36415; 71045; 80053; 81001; 83880; 84484; 85025; 85379; 87426; 99285; J1940; 93005

== ENCOUNTER → 2022-05-29 | Outpatient (CLI) | payer BC ==
[2022-05-29 08:40] LABS: Basophils # (auto) 0.1 10 ^3/uL (0-0.2); Basophils % (auto) 1.1 % (0.0-2.0); Eosinophils # (auto) 0 10 ^3/uL (0-0.8); Eosinophils % (auto) 0.7 % (0.0-7.0); Hematocrit 44.4 % (41.0-53.0); Hemoglobin 14.6 g/dL (13.5-17.5); Lymphocytes # (auto) 2.1 10 ^3/uL (0.4-5.4); Lymphocytes % (auto) 38.8 % (10.0-50.0); Mean Corpuscular Hemoglobin 28.6 pg (28.0-32.0); Mean Corpuscular Hgb Conc. 32.9 g/dL (32.0-36.0); Mean Corpuscular Volume 86.8 fL (80.0-100.0); Monocytes # (auto) 0.3 10 ^3/uL (0-1.3); Monocytes % (auto) 6.3 % (0.0-12.0); Neutrophils # (auto) 2.9 10 ^3/uL (1.6-8.6); Neutrophils % (auto) 53.1 % (37.0-80.0); Nucleated Red Blood Cells % 0.1 %; Red Blood Cells 5.11 10^6/uL (4.5-5.90); Red Cell Distribution Width 13.3 % (11.8-14.3); White Blood Cell 5.4 10^3/uL (4.4-10.8)
[2022-05-29 09:11] LABS: Albumin 3.3 g/dL (3.4-5.0); Calcium 8.9 mg/dL (8.5-10.1); Potassium 4.8 mmol/L (3.5-5.1)
[2022-05-29 09:17] LABS: Bilirubin, Total 0.3 mg/dL (0.2-1.0)
[2022-05-29 09:37] LABS: Free T3 2.47 pg/mL (2.3-4.2); Free T4 (Free Thyroxine) 0.92 ng/dL (0.89-1.76)
== END | disposition home or self-care (01) ==
LOC: LAB 08:14
PROVIDERS: ATTEND Internal Medicine
DX: E11.9 Type 2 diabetes mellitus without complications (principal); I50.42 Chronic combined systolic (congestive) and diastolic (congestive) heart failure; E78.5 Hyperlipidemia, unspecified
CPT/HCPCS: 36415; 80053; 80061; 83036; 84403; 84439; 84443; 84481; 85025

== ENCOUNTER 2022-07-31 08:02 | Day surgery (SDC) | payer BC ==
[2022-07-30 12:27] LABS: Basophils # (auto) 0 10 ^3/uL (0-0.2); Basophils % (auto) 0.8 % (0.0-2.0); Eosinophils # (auto) 0 10 ^3/uL (0-0.8); Hematocrit 45.8 % (41.0-53.0); Hemoglobin 15.3 g/dL (13.5-17.5); Lymphocytes # (auto) 1.8 10 ^3/uL (0.4-5.4); Lymphocytes % (auto) 35.7 % (10.0-50.0); Mean Corpuscular Hemoglobin 28.7 pg (28.0-32.0); Mean Corpuscular Hgb Conc. 33.4 g/dL (32.0-36.0); Monocytes # (auto) 0.5 10 ^3/uL (0-1.3); Monocytes % (auto) 9.6 % (0.0-12.0); Neutrophils # (auto) 2.6 10 ^3/uL (1.6-8.6); Neutrophils % (auto) 52.9 % (37.0-80.0); Nucleated Red Blood Cells % 0.3 %; Red Blood Cells 5.33 10^6/uL (4.5-5.90); Red Cell Distribution Width 13.2 % (11.8-14.3); White Blood Cell 4.9 10^3/uL (4.4-10.8)
[2022-07-30 12:30] LABS: Urine Bacteria FEW /hpf (None Seen); Urine Blood Negative /uL (Negative); Urine Specific Gravity 1.037 (1.001-1.035); Urine WBC 2 /hpf (0 - 3)
[2022-07-30 12:43] LABS: INR 1.03 (0.9-1.15); Partial Thromboplastin Time 26.6 sec (24.6-33.4)
[2022-07-30 13:26] LABS: Potassium 4.3 mmol/L (3.5-5.1)
[2022-07-30 13:32] LABS: Albumin 3.4 g/dL (3.4-5.0); BUN/Creatinine Ratio 13.3 (10.0-20.0); Bilirubin, Total 0.5 mg/dL (0.2-1.0); Calcium 9.2 mg/dL (8.5-10.1); Total Protein 7.8 g/dL (6.4-8.2)
[~2022-07-31] VITALS: Ht 180.3 cm; Wt 115.7 kg
[~2022-07-31 08:02] MED LIST changes: +ASPI-543 PO
[2022-07-31] MEDS ORDERED: ceFAZolin 1GM/50ML 100 ML IV ONE (08:08)
[2022-07-31] MEDS ORDERED: methylPREDNISolone ACETATE 80 MG/ML VL ONE (08:28)
[2022-07-31] MEDS ORDERED: ROPIVACAINE 0.5% (5MG/ML) 20ML AMPULE IJ ONE ×2 (08:28→10:19)
[2022-07-31] MEDS ORDERED: BACITRACIN TOP OINT 1 UD PKG TOP ONE (08:29)
[2022-07-31] MEDS ORDERED: DexAMETHasone SOD PHOS 10MG/1ML VIAL INJ ONE (08:57)
[2022-07-31] MEDS ORDERED: KETOROLAC TROMETH 30 MG/ML 1ML VIAL ONE (08:57)
[2022-07-31] MEDS ORDERED: LIDOCAINE 2% (LOCAL ANESTH.) PF 5ml SDV ONE ×2 (08:57→09:27)
[2022-07-31] MEDS ORDERED: PROPOFOL 10 MG/ML 20 ML IV ONE (08:57)
[2022-07-31] MEDS ORDERED: ONDANSETRON HCL 4 MG/2 ML VIAL ONE (08:57)
[2022-07-31] MEDS ORDERED: GLYCOPYRROLATE 0.2 MG/ML 1ML VIAL ONE (08:57)
[2022-07-31] MEDS ORDERED: InsuLIN REG 1unit/0.01ml Soln (100units/ml) ONE (09:10)
[2022-07-31] MEDS ORDERED: InsuLIN REG 1unit/0.01ml Soln (100units/ml) SC ONE (09:11)
[2022-07-31] MEDS ORDERED: DEXTROSE (50%) 50ML SYRG IV PRN (09:15)
[2022-07-31] MEDS ORDERED: LIDOCAINE W/ EPINEPHRINE 2% INJ 20ML VIAL ONE (09:20)
[2022-07-31] MEDS ORDERED: BUPIVACAINE 0.5% P/F INJ 10 ML VIAL ONE ×2 (09:20→10:54)
[2022-07-31] MEDS ORDERED: DexAMETHasone SOD PHOS 4 MG/1ML SDV INJ ONE ×2 (09:20→10:54)
[2022-07-31] MEDS ORDERED: fentaNYL CITRATE 100 MCG/2 ML VL ONE (10:00)
[2022-07-31] MEDS ORDERED: LABETALOL HCL 5 MG/ML 4ML SYRINGE IV PRN (10:45)
[2022-07-31] MEDS ORDERED: hydrALAZINE HCL 20 MG/ML VL IV PRN (10:45)
[2022-07-31] MEDS ORDERED: HYDROmorphone HCL 2 MG/ML VL/or syr IV PRN (10:45)
[2022-07-31] MEDS ORDERED: ONDANSETRON HCL 4 MG/2 ML VIAL IV PRN (10:45)
[2022-07-31] MEDS ORDERED: FLUMAZENIL 0.1 MG/ML INJ 10ML MDV IV PRN (10:45)
[2022-07-31] MEDS ORDERED: ePHEDrine SULFATE 50 MG/ML AMP IV PRN (10:45)
[2022-07-31] MEDS ORDERED: NALOXONE HCL 0.4 MG/ML VIAL IV PRN (10:45)
[2022-07-31] MEDS ORDERED: fentaNYL CITRATE 100 MCG/2 ML VL IV PRN (10:45)
[2022-07-31] MEDS ORDERED: LIDOCAINE HCL 2 %PF INJ 10ML AMP IJ ONE (10:58)
[2022-07-31] MEDS ORDERED: InsuLIN REG 1unit/0.01ml Soln (100units/ml) SC SCH (11:30)
[2022-07-31] MEDS ORDERED: ACCU-CHEK COMFORT CURVE STRIP VI SCH (11:30)
[2022-07-31 11:35] VITALS: BP 171/92
[2022-07-31] MEDS ORDERED: KETAMINE 50mg/ML 10ml Vial (500mg/10ml) IV ONE (17:45)
== END 2022-07-31 12:40 | disposition home or self-care (01) ==
LOC: SUR 08:02
PROVIDERS: ATTEND Podiatrist Foot & Ankle Surgery
DX: M24.572 Contracture, left ankle (principal); M21.6X2 Other acquired deformities of left foot; M79.672 Pain in left foot; Z20.822 Contact with and (suspected) exposure to COVID-19; E11.9 Type 2 diabetes mellitus without complications; Z79.84 Long term (current) use of oral hypoglycemic drugs; I10 Essential (primary) hypertension; Z79.899 Other long term (current) drug therapy
CPT/HCPCS: 27685; 29999; 36415; 80053; 81001; 82962; 85025; 85610; 85730; J0690; J1040; J1100; J1815; J1885; J2001; J2405; J2704; J2795; J3490; U0003

== ENCOUNTER → 2022-08-03 | Outpatient (CLI) | payer BC | END | disposition home or self-care (01) | LOC: XYW 09:12 | PROVIDERS: ATTEND Internal Medicine | DX: I34.0 Nonrheumatic mitral (valve) insufficiency (principal); I51.7 Cardiomegaly; I50.42 Chronic combined systolic (congestive) and diastolic (congestive) heart failure | CPT/HCPCS: 93306 ==

== ENCOUNTER 2022-11-08 20:17 | Inpatient (IN) | payer BC ==
[~2022-11-08] VITALS: Ht 180.3 cm; Wt 68.0 kg
[~2022-11-08 20:17] MED LIST changes: -AMLO-496 PO; +AMLO1TAB23 PO; -NALT1TAB PO; +NALT1TAB12 PO
[2022-11-08 21:48] LABS: Basophils # (auto) 0.1 10 ^3/uL (0-0.2); Basophils % (auto) 1.1 % (0.0-2.0); Eosinophils # (auto) 0.1 10 ^3/uL (0-0.8); Hematocrit 41.5 % (41.0-53.0); Hemoglobin 13.9 g/dL (13.5-17.5); Lymphocytes % (auto) 35.2 % (10.0-50.0); Mean Corpuscular Hemoglobin 28.8 pg (28.0-32.0); Mean Corpuscular Hgb Conc. 33.4 g/dL (32.0-36.0); Mean Corpuscular Volume 86.1 fL (80.0-100.0); Monocytes # (auto) 0.4 10 ^3/uL (0-1.3); Monocytes % (auto) 7.2 % (0.0-12.0); Neutrophils # (auto) 3.1 10 ^3/uL (1.6-8.6); Neutrophils % (auto) 55.5 % (37.0-80.0); Nucleated Red Blood Cells % 0.1 %; Red Blood Cells 4.82 10^6/uL (4.5-5.90); Red Cell Distribution Width 13.8 % (11.8-14.3); White Blood Cell 5.7 10^3/uL (4.4-10.8)
[2022-11-08 22:04] LABS: Albumin 3.4 g/dL (3.4-5.0); Calcium 9.2 mg/dL (8.5-10.1); Potassium 4.3 mmol/L (3.5-5.1)
[2022-11-08 22:08] LABS: BUN/Creatinine Ratio 15.6 (10.0-20.0); Bilirubin, Total 0.3 mg/dL (0.2-1.0); Total Protein 7.4 g/dL (6.4-8.2)
[2022-11-09] MEDS ORDERED: SODIUM CHLORIDE 0.9% 1,000 ML IV ONE
[2022-11-09] MEDS ORDERED: INSULIN LISPRO (HUMAN) 100 UNITS/ML ML SC ONE
[2022-11-09] MEDS ORDERED: PIPERACILLIN-TAZOB 3.375GM 100 ML IV ONE (00:15)
[2022-11-09] MEDS ORDERED: VANCOMYCIN PER PHARMACY 0 MG IV SCH ×2 (00:15→05:30)
[2022-11-09] MEDS ORDERED: VANCOMYCIN 1GM/250ML 250 ML IV ONE (01:00)
[2022-11-09 01:31] LABS: Urine Bacteria FEW /hpf (None Seen); Urine Blood Negative /uL (Negative); Urine Specific Gravity 1.032 (1.001-1.035); Urine Sperm PRESENT /hpf (None Seen); Urine WBC 2 /hpf (0 - 3)
[2022-11-09] MEDS ORDERED: ONDANSETRON HCL 4 MG/2 ML VIAL IV PRN (05:30)
[2022-11-09] MEDS ORDERED: DEXTROSE (50%) 50ML SYRG IV PRN (05:30)
[2022-11-09] MEDS ORDERED: ACETAMINOPHEN 325 MG TAB PO PRN (05:30)
[2022-11-09] MEDS: ACCU-CHEK COMFORT CURVE STRIP VI SCH ×5 (08:33→23:55)
[2022-11-09] MEDS: PIPERACILLIN-TAZOB 3.375GM 100 ML IV SCH ×3 (08:33→22:31)
[2022-11-09] MEDS: InsuLIN REG 1unit/0.01ml Soln (100units/ml) SC SCH ×4 (08:39→20:22)
[2022-11-09] MEDS ORDERED: PIPERACILLIN-TAZOB 3.375GM 100 ML IV SCH (10:00)
[2022-11-09] MEDS ORDERED: PANTOPRAZOLE 40 MG TAB PO SCH (10:00)
[2022-11-09] MEDS: SACUBITRIL-VALSARTAN 24mg/26mg TAB PO SCH ×2 (10:11→22:33)
[2022-11-09] MEDS: METOPROLOL TARTRATE 25 MG TAB PO SCH ×2 (10:11→22:33)
[2022-11-09] MEDS: CLOPIDOGREL BISULFATE 75 MG TAB PO SCH (10:12)
[2022-11-09] MEDS: amLODIPine BESYLATE 5 MG TAB PO SCH (10:12)
[2022-11-09 10:45] LABS: Basophils # (auto) 0 10 ^3/uL (0-0.2); Basophils % (auto) 0.3 % (0.0-2.0); Eosinophils # (auto) 0 10 ^3/uL (0-0.8); Hematocrit 40.1 % (41.0-53.0); Hemoglobin 13.3 g/dL (13.5-17.5); Lymphocytes # (auto) 1.5 10 ^3/uL (0.4-5.4); Lymphocytes % (auto) 33.7 % (10.0-50.0); Mean Corpuscular Hemoglobin 28.6 pg (28.0-32.0); Mean Corpuscular Hgb Conc. 33.1 g/dL (32.0-36.0); Mean Corpuscular Volume 86.3 fL (80.0-100.0); Monocytes # (auto) 0.4 10 ^3/uL (0-1.3); Monocytes % (auto) 8.2 % (0.0-12.0); Neutrophils # (auto) 2.5 10 ^3/uL (1.6-8.6); Neutrophils % (auto) 56.8 % (37.0-80.0); Nucleated Red Blood Cells % 0.1 %; Red Blood Cells 4.65 10^6/uL (4.5-5.90); Red Cell Distribution Width 13.9 % (11.8-14.3); White Blood Cell 4.5 10^3/uL (4.4-10.8)
[2022-11-09 11:10] LABS: Calcium 8.7 mg/dL (8.5-10.1); Potassium 4.3 mmol/L (3.5-5.1)
[2022-11-09 11:17] LABS: Albumin 2.9 g/dL (3.4-5.0); BUN/Creatinine Ratio 20.2 (10.0-20.0); Bilirubin, Total 0.3 mg/dL (0.2-1.0); Magnesium 2.2 mg/dL (1.6-2.6); Total Protein 6.9 g/dL (6.4-8.2)
[2022-11-09] MEDS: VANCOMYCIN 1GM/250ML 250 ML IV SCH ×2 (11:41→18:18)
[2022-11-09] MEDS ORDERED: hydrALAZINE HCL 20 MG/ML VL IV PRN (19:30)
[2022-11-09 22:00] VITALS: BP 156/83
[2022-11-09] MEDS: ATORVASTATIN 20 MG TAB PO SCH (22:31)
[2022-11-09] MEDS: HYDROcodone-ACET 5/325MG TAB PO PRN (22:32)
[2022-11-09] MEDS: GABAPENTIN 100 MG CAP PO SCH (22:32)
[2022-11-09] MEDS: TEMAZEPAM 15 MG CAP PO PRN (22:33)
[2022-11-10] MEDS: InsuLIN REG 1unit/0.01ml Soln (100units/ml) SC SCH ×5 (00:01→18:02)
[2022-11-10] MEDS: VANCOMYCIN 1GM/250ML 250 ML IV SCH ×3 (03:18→19:56)
[2022-11-10] MEDS: ACCU-CHEK COMFORT CURVE STRIP VI SCH ×4 (04:22→18:01)
[2022-11-10 05:00] VITALS: BP 147/76
[2022-11-10] MEDS: PIPERACILLIN-TAZOB 3.375GM 100 ML IV SCH ×3 (05:39→22:10)
[2022-11-10 06:08] LABS: Basophils # (auto) 0 10 ^3/uL (0-0.2); Basophils % (auto) 0.4 % (0.0-2.0); Eosinophils # (auto) 0.1 10 ^3/uL (0-0.8); Eosinophils % (auto) 1.6 % (0.0-7.0); Hematocrit 38.9 % (41.0-53.0); Hemoglobin 13.1 g/dL (13.5-17.5); Lymphocytes # (auto) 1.8 10 ^3/uL (0.4-5.4); Lymphocytes % (auto) 42.9 % (10.0-50.0); Mean Corpuscular Hemoglobin 29.4 pg (28.0-32.0); Mean Corpuscular Hgb Conc. 33.7 g/dL (32.0-36.0); Mean Corpuscular Volume 87.2 fL (80.0-100.0); Monocytes # (auto) 0.4 10 ^3/uL (0-1.3); Monocytes % (auto) 9.6 % (0.0-12.0); Neutrophils # (auto) 1.9 10 ^3/uL (1.6-8.6); Neutrophils % (auto) 45.5 % (37.0-80.0); Nucleated Red Blood Cells % 0.1 %; Red Blood Cells 4.47 10^6/uL (4.5-5.90); Red Cell Distribution Width 13.8 % (11.8-14.3); White Blood Cell 4.2 10^3/uL (4.4-10.8)
[2022-11-10 07:28] LABS: Albumin 2.4 g/dL (3.4-5.0); Calcium 8.3 mg/dL (8.5-10.1); Magnesium 2.2 mg/dL (1.6-2.6); Potassium 3.8 mmol/L (3.5-5.1)
[2022-11-10 07:33] LABS: BUN/Creatinine Ratio 19.7 (10.0-20.0); Bilirubin, Total 0.4 mg/dL (0.2-1.0); Total Protein 5.9 g/dL (6.4-8.2)
[2022-11-10 09:00] VITALS: BP 163/94
[2022-11-10] MEDS: GABAPENTIN 100 MG CAP PO SCH ×2 (12:19→22:10)
[2022-11-10] MEDS: SACUBITRIL-VALSARTAN 24mg/26mg TAB PO SCH ×2 (12:19→22:11)
[2022-11-10] MEDS: CLOPIDOGREL BISULFATE 75 MG TAB PO SCH (12:19)
[2022-11-10] MEDS: HYDROcodone-ACET 5/325MG TAB PO PRN ×2 (12:20→22:12)
[2022-11-10] MEDS: METOPROLOL TARTRATE 25 MG TAB PO SCH ×2 (12:20→22:11)
[2022-11-10] MEDS: amLODIPine BESYLATE 5 MG TAB PO SCH (12:21)
[2022-11-10 13:00] VITALS: BP 154/92
[2022-11-10 17:02] VITALS: BP 145/80
[2022-11-10 22:00] VITALS: BP 167/90
[2022-11-10] MEDS: ATORVASTATIN 20 MG TAB PO SCH (22:11)
[2022-11-11] VITALS (10 sets, daily range): BP systolic 105–144; BP diastolic 50–83
[2022-11-11] MEDS: ACCU-CHEK COMFORT CURVE STRIP VI SCH ×4 (00:10→17:18)
[2022-11-11] MEDS: InsuLIN REG 1unit/0.01ml Soln (100units/ml) SC SCH ×5 (00:16→21:49)
[2022-11-11] MEDS: VANCOMYCIN 1GM/250ML 250 ML IV SCH ×3 (03:52→20:30)
[2022-11-11 06:05] LABS: Basophils # (auto) 0 10 ^3/uL (0-0.2); Basophils % (auto) 0.5 % (0.0-2.0); Eosinophils # (auto) 0.1 10 ^3/uL (0-0.8); Eosinophils % (auto) 1.8 % (0.0-7.0); Hematocrit 40.5 % (41.0-53.0); Hemoglobin 13.4 g/dL (13.5-17.5); Lymphocytes # (auto) 1.9 10 ^3/uL (0.4-5.4); Lymphocytes % (auto) 36.5 % (10.0-50.0); Mean Corpuscular Hemoglobin 28.7 pg (28.0-32.0); Mean Corpuscular Hgb Conc. 33.2 g/dL (32.0-36.0); Mean Corpuscular Volume 86.6 fL (80.0-100.0); Monocytes # (auto) 0.6 10 ^3/uL (0-1.3); Monocytes % (auto) 11.8 % (0.0-12.0); Neutrophils # (auto) 2.6 10 ^3/uL (1.6-8.6); Neutrophils % (auto) 49.4 % (37.0-80.0); Nucleated Red Blood Cells % 0.1 %; Red Blood Cells 4.68 10^6/uL (4.5-5.90); Red Cell Distribution Width 13.7 % (11.8-14.3); White Blood Cell 5.2 10^3/uL (4.4-10.8)
[2022-11-11 06:15] LABS: Albumin 2.4 g/dL (3.4-5.0); Potassium 3.9 mmol/L (3.5-5.1)
[2022-11-11 06:23] LABS: BUN/Creatinine Ratio 14.4 (10.0-20.0); Bilirubin, Total 0.4 mg/dL (0.2-1.0); Calcium 8.4 mg/dL (8.5-10.1); Total Protein 6.1 g/dL (6.4-8.2)
[2022-11-11] MEDS: PIPERACILLIN-TAZOB 3.375GM 100 ML IV SCH ×2 (06:27→17:18)
[2022-11-11] MEDS ORDERED: INSULIN LANTUS (GLARGINE) 1 /0.01ml (100units/ml) SC SCH (07:00)
[2022-11-11] MEDS ORDERED: fentaNYL CITRATE 100 MCG/2 ML VL ONE (08:58)
[2022-11-11] MEDS ORDERED: MIDAZOLAM HCL 2MG/2ML 2ml VIAL (1mg/ml) ONE (08:58)
[2022-11-11] MEDS ORDERED: ANGIOMAX 250 MG VIAL IV ONE ×2 (08:58→10:19)
[2022-11-11] MEDS ORDERED: IODIXANOL 320MG/ML 100ML BTL IV ONE ×2 (08:59→18:18)
[2022-11-11] MEDS ORDERED: SODIUM CHL 0.9% 50 ML ONE ×2 (08:59→10:19)
[2022-11-11] MEDS ORDERED: LIDOCAINE 2%HCL (LOCAL ANESTH.) INJ 20ML MDV ONE (08:59)
[2022-11-11] MEDS: CLOPIDOGREL BISULFATE 75 MG TAB PO SCH ×2 (10:00→12:16)
[2022-11-11] MEDS ORDERED: CLOPIDOGREL BISULFATE 75 MG TAB ONE (10:30)
[2022-11-11] MEDS: SACUBITRIL-VALSARTAN 24mg/26mg TAB PO SCH ×2 (12:15→21:26)
[2022-11-11] MEDS: GABAPENTIN 100 MG CAP PO SCH ×2 (12:16→21:27)
[2022-11-11] MEDS: ASPirin 81 mg TAB PO SCH (12:16)
[2022-11-11] MEDS: SPIRONOLACTONE 25 MG TAB PO SCH (12:17)
[2022-11-11] MEDS: METOPROLOL TARTRATE 25 MG TAB PO SCH ×2 (12:17→21:54)
[2022-11-11] MEDS: amLODIPine BESYLATE 5 MG TAB PO SCH (12:18)
[2022-11-11] MEDS: INSULIN LANTUS (GLARGINE) 1 /0.01ml (100units/ml) SC SCH (19:50)
[2022-11-11] MEDS: ATORVASTATIN 20 MG TAB PO SCH (21:28)
[2022-11-11] MEDS: TEMAZEPAM 15 MG CAP PO PRN (21:50)
[2022-11-11] MEDS: HYDROcodone-ACET 5/325MG TAB PO PRN (21:53)
[2022-11-12] MEDS: PIPERACILLIN-TAZOB 3.375GM 100 ML IV SCH ×4 (01:33→22:16)
[2022-11-12] MEDS: VANCOMYCIN 1GM/250ML 250 ML IV SCH ×3 (04:30→20:45)
[2022-11-12 05:00] VITALS: BP 151/82
[2022-11-12] MEDS: ACCU-CHEK COMFORT CURVE STRIP VI SCH ×4 (06:00→18:21)
[2022-11-12 06:45] LABS: Basophils # (auto) 0 10 ^3/uL (0-0.2); Basophils % (auto) 0.3 % (0.0-2.0); Eosinophils # (auto) 0.1 10 ^3/uL (0-0.8); Eosinophils % (auto) 1.7 % (0.0-7.0); Hematocrit 41.4 % (41.0-53.0); Hemoglobin 13.8 g/dL (13.5-17.5); Lymphocytes # (auto) 1.7 10 ^3/uL (0.4-5.4); Lymphocytes % (auto) 37.1 % (10.0-50.0); Mean Corpuscular Hemoglobin 28.9 pg (28.0-32.0); Mean Corpuscular Hgb Conc. 33.4 g/dL (32.0-36.0); Mean Corpuscular Volume 86.6 fL (80.0-100.0); Monocytes # (auto) 0.5 10 ^3/uL (0-1.3); Monocytes % (auto) 11.7 % (0.0-12.0); Neutrophils # (auto) 2.3 10 ^3/uL (1.6-8.6); Neutrophils % (auto) 49.2 % (37.0-80.0); Nucleated Red Blood Cells % 0.1 %; Red Blood Cells 4.78 10^6/uL (4.5-5.90); Red Cell Distribution Width 13.9 % (11.8-14.3); White Blood Cell 4.6 10^3/uL (4.4-10.8)
[2022-11-12] MEDS: INSULIN LANTUS (GLARGINE) 1 /0.01ml (100units/ml) SC SCH ×2 (06:48→19:06)
[2022-11-12 06:49] LABS: Albumin 2.7 g/dL (3.4-5.0); BUN/Creatinine Ratio 16.9 (10.0-20.0); Calcium 8.3 mg/dL (8.5-10.1); Potassium 4.3 mmol/L (3.5-5.1)
[2022-11-12 06:52] LABS: Bilirubin, Total 0.4 mg/dL (0.2-1.0); Total Protein 6.4 g/dL (6.4-8.2)
[2022-11-12] MEDS: InsuLIN REG 1unit/0.01ml Soln (100units/ml) SC SCH ×3 (08:38→18:23)
[2022-11-12 09:00] VITALS: BP 143/76
[2022-11-12] MEDS: CLOPIDOGREL BISULFATE 75 MG TAB PO SCH (09:52)
[2022-11-12] MEDS: GABAPENTIN 100 MG CAP PO SCH ×2 (09:53→22:26)
[2022-11-12] MEDS: SPIRONOLACTONE 25 MG TAB PO SCH (09:53)
[2022-11-12] MEDS: ASPirin 81 mg TAB PO SCH (09:53)
[2022-11-12] MEDS: amLODIPine BESYLATE 5 MG TAB PO SCH (09:54)
[2022-11-12] MEDS: SACUBITRIL-VALSARTAN 24mg/26mg TAB PO SCH ×2 (09:55→22:16)
[2022-11-12] MEDS: METOPROLOL TARTRATE 25 MG TAB PO SCH ×2 (09:55→22:25)
[2022-11-12 17:02] VITALS: BP 143/77
[2022-11-12 22:00] VITALS: BP 171/89
[2022-11-12] MEDS: ATORVASTATIN 20 MG TAB PO SCH (22:25)
[2022-11-12] MEDS: HYDROcodone-ACET 5/325MG TAB PO PRN (22:26)
[2022-11-13] MEDS: VANCOMYCIN 1GM/250ML 250 ML IV SCH ×3 (04:04→20:38)
[2022-11-13 05:00] VITALS: BP 173/86
[2022-11-13] MEDS: PIPERACILLIN-TAZOB 3.375GM 100 ML IV SCH ×3 (05:21→23:44)
[2022-11-13] MEDS: ACCU-CHEK COMFORT CURVE STRIP VI SCH ×5 (05:40→23:40)
[2022-11-13] MEDS: InsuLIN REG 1unit/0.01ml Soln (100units/ml) SC SCH ×5 (06:10→23:52)
[2022-11-13] MEDS: INSULIN LANTUS (GLARGINE) 1 /0.01ml (100units/ml) SC SCH ×2 (06:39→19:06)
[2022-11-13 06:42] LABS: Basophils # (auto) 0 10 ^3/uL (0-0.2); Basophils % (auto) 0.6 % (0.0-2.0); Eosinophils # (auto) 0.1 10 ^3/uL (0-0.8); Eosinophils % (auto) 1.6 % (0.0-7.0); Hematocrit 42.3 % (41.0-53.0); Lymphocytes # (auto) 2.1 10 ^3/uL (0.4-5.4); Lymphocytes % (auto) 37.9 % (10.0-50.0); Mean Corpuscular Hemoglobin 28.7 pg (28.0-32.0); Mean Corpuscular Hgb Conc. 33.1 g/dL (32.0-36.0); Mean Corpuscular Volume 86.8 fL (80.0-100.0); Monocytes # (auto) 0.6 10 ^3/uL (0-1.3); Neutrophils # (auto) 2.7 10 ^3/uL (1.6-8.6); Neutrophils % (auto) 48.9 % (37.0-80.0); Red Blood Cells 4.87 10^6/uL (4.5-5.90); White Blood Cell 5.6 10^3/uL (4.4-10.8)
[2022-11-13 06:49] LABS: Potassium 4.1 mmol/L (3.5-5.1)
[2022-11-13 07:01] LABS: Albumin 2.8 g/dL (3.4-5.0); BUN/Creatinine Ratio 16.7 (10.0-20.0); Bilirubin, Total 0.4 mg/dL (0.2-1.0); Calcium 8.7 mg/dL (8.5-10.1); Total Protein 6.6 g/dL (6.4-8.2)
[2022-11-13 09:07] VITALS: BP 138/76
[2022-11-13] MEDS: ASPirin 81 mg TAB PO SCH (09:13)
[2022-11-13] MEDS: GABAPENTIN 100 MG CAP PO SCH ×2 (09:13→22:24)
[2022-11-13] MEDS: CLOPIDOGREL BISULFATE 75 MG TAB PO SCH (09:14)
[2022-11-13] MEDS: SACUBITRIL-VALSARTAN 24mg/26mg TAB PO SCH ×2 (09:14→22:24)
[2022-11-13] MEDS: SPIRONOLACTONE 25 MG TAB PO SCH (09:15)
[2022-11-13] MEDS: amLODIPine BESYLATE 5 MG TAB PO SCH (09:16)
[2022-11-13] MEDS: CARVEDILOL 3.125 MG TAB PO SCH ×2 (09:18→22:25)
[2022-11-13 12:37] VITALS: BP 128/67
[2022-11-13 16:28] VITALS: BP 120/70
[2022-11-13] MEDS: ATORVASTATIN 20 MG TAB PO SCH (22:24)
[2022-11-13] MEDS: HYDROcodone-ACET 5/325MG TAB PO PRN (22:26)
[2022-11-13] MEDS: TEMAZEPAM 15 MG CAP PO PRN (23:40)
[2022-11-14 05:00] VITALS: BP 122/66
[2022-11-14] MEDS: VANCOMYCIN 1GM/250ML 250 ML IV SCH ×2 (05:19→12:28)
[2022-11-14] MEDS: ACCU-CHEK COMFORT CURVE STRIP VI SCH ×2 (06:36→12:11)
[2022-11-14] MEDS: InsuLIN REG 1unit/0.01ml Soln (100units/ml) SC SCH ×3 (06:44→16:15)
[2022-11-14] MEDS: INSULIN LANTUS (GLARGINE) 1 /0.01ml (100units/ml) SC SCH (06:45)
[2022-11-14] MEDS ORDERED: EMPAGLIFLOZIN 10 MG TAB PO SCH (07:00)
[2022-11-14] MEDS: PIPERACILLIN-TAZOB 3.375GM 100 ML IV SCH ×2 (07:55→16:00)
[2022-11-14 09:00] VITALS: BP 151/82
[2022-11-14] MEDS: ASPirin 81 mg TAB PO SCH (11:00)
[2022-11-14] MEDS: SACUBITRIL-VALSARTAN 24mg/26mg TAB PO SCH (11:00)
[2022-11-14] MEDS: GABAPENTIN 100 MG CAP PO SCH (11:00)
[2022-11-14] MEDS: CLOPIDOGREL BISULFATE 75 MG TAB PO SCH (11:01)
[2022-11-14] MEDS: SPIRONOLACTONE 25 MG TAB PO SCH (11:01)
[2022-11-14] MEDS: amLODIPine BESYLATE 5 MG TAB PO SCH (11:02)
[2022-11-14] MEDS: CARVEDILOL 3.125 MG TAB PO SCH (11:02)
[2022-11-14 12:40] VITALS: BP 155/93
[2022-11-14] MEDS ORDERED: AMIT50TA10 PO (14:46)
[2022-11-14 16:35] VITALS: BP 142/80
== END 2022-11-14 15:30 | disposition home or self-care (01) | DRG 252 ==
LOC: ER 20:17 → OVERFLOW 11-09 05:36 → WEST WING 11-09 16:53
PROVIDERS: ADMIT Internal Medicine Geriatric Medicine; ATTEND Internal Medicine Geriatric Medicine
PROC: 047P3ZZ Dilation of Right Anterior Tibial Artery, Percutaneous Approach (ICD-10-PCS; principal; 2022-11-11)
PROC: 047K3ZZ Dilation of Right Femoral Artery, Percutaneous Approach (ICD-10-PCS; 2022-11-11)
PROC: B41GYZZ Fluoroscopy of Left Lower Extremity Arteries using Other Contrast (ICD-10-PCS; 2022-11-11)
PROC: B41FYZZ Fluoroscopy of Right Lower Extremity Arteries using Other Contrast (ICD-10-PCS; 2022-11-11)
DX: E11.51 Type 2 diabetes mellitus with diabetic peripheral angiopathy without gangrene (principal); I50.41 Acute combined systolic (congestive) and diastolic (congestive) heart failure; L03.115 Cellulitis of right lower limb; E44.0 Moderate protein-calorie malnutrition; L03.116 Cellulitis of left lower limb; E11.621 Type 2 diabetes mellitus with foot ulcer; I11.0 Hypertensive heart disease with heart failure; I25.10 Atherosclerotic heart disease of native coronary artery without angina pectoris; L97.519 Non-pressure chronic ulcer of other part of right foot with unspecified severity; E66.01 Morbid (severe) obesity due to excess calories; E11.69 Type 2 diabetes mellitus with other specified complication; F41.9 Anxiety disorder, unspecified; E11.65 Type 2 diabetes mellitus with hyperglycemia; E11.42 Type 2 diabetes mellitus with diabetic polyneuropathy; F12.90 Cannabis use, unspecified, uncomplicated; E78.5 Hyperlipidemia, unspecified; Z83.3 Family history of diabetes mellitus; Z87.891 Personal history of nicotine dependence; Z91.199 Patient's noncompliance with other medical treatment and regimen due to unspecified reason; Z68.36 Body mass index [BMI] 36.0-36.9, adult; Z98.62 Peripheral vascular angioplasty status; Z79.82 Long term (current) use of aspirin; Z79.02 Long term (current) use of antithrombotics/antiplatelets
CPT/HCPCS: 36415; 71045; 73700; 80053; 80061; 80202; 81001; 82550; 82962; 83036; 83605; 83615; 83690; 83735; 83880; 84484; 85025; 87040; 93005; 93925; 96365; 96367; 96372; 99152; 99153; C1769; G0378; J1815; J2250; J2543; Q9967

== ENCOUNTER → 2023-01-21 | Outpatient (CLI) | payer BC ==
[~2023-01-21] VITALS: Ht 180.3 cm; Wt 115.7 kg
[~2023-01-21] MED LIST changes: +ADENOSINE 97 MG in GIVE UN-DILUTED 0 ML IV ONE; +AMIT50TA10 PO; -POM PO
== END | disposition home or self-care (01) ==
LOC: XYW 07:45
PROVIDERS: ATTEND Internal Medicine
DX: I25.9 Chronic ischemic heart disease, unspecified (principal); I50.42 Chronic combined systolic (congestive) and diastolic (congestive) heart failure; I73.9 Peripheral vascular disease, unspecified; I42.0 Dilated cardiomyopathy; I25.10 Atherosclerotic heart disease of native coronary artery without angina pectoris
CPT/HCPCS: 78452; 93017; A9500; J0153

== ENCOUNTER 2023-08-26 12:17 | Inpatient (IN) | payer MEDICARE, BC ==
[~2023-08-26] VITALS: Ht 180.3 cm; Wt 98.4 kg
[~2023-08-26 12:17] MED LIST changes: -ADENOSINE 97 MG in GIVE UN-DILUTED 0 ML IV ONE; -AMIT50TA10 PO; +AMIT50TA12 PO
[2023-08-26 15:00] LABS: Basophils # (auto) 0.1 10 ^3/uL (0-0.2); Basophils % (auto) 0.5 % (0.0-2.0); Eosinophils # (auto) 0.1 10 ^3/uL (0-0.8); Lymphocytes # (auto) 1.9 10 ^3/uL (0.4-5.4)
[2023-08-26 15:01] LABS: Eosinophils % (auto) 0.6 % (0.0-7.0); Hematocrit 37.4 % (41.0-53.0); Hemoglobin 12.1 g/dL (13.5-17.5); Mean Corpuscular Hgb Conc. 32.2 g/dL (32.0-36.0); Mean Corpuscular Volume 80.9 fL (80.0-100.0); Monocytes % (auto) 7.6 % (0.0-12.0); Neutrophils # (auto) 9.9 10 ^3/uL (1.6-8.6); Neutrophils % (auto) 76.3 % (37.0-80.0); Red Blood Cells 4.63 10^6/uL (4.5-5.90); Red Cell Distribution Width 15.2 % (11.8-14.3); White Blood Cell 12.9 10^3/uL (4.4-10.8)
[2023-08-26 15:17] LABS: Alanine Aminotransferase 19 U/L (7-40); Albumin 4.1 g/dL (3.2-4.8); Alkaline Phosphatase 277 U/L (46-116); Anion Gap 8 (5-15); Aspartate Aminotransferase 11 U/L (13-40); BUN/Creatinine Ratio 12.8 (10.0-20.0); Blood Urea Nitrogen 17 mg/dL (9-23); Calcium 9.2 mg/dL (8.5-10.1); Carbon Dioxide 23 mmol/L (20-30); Chloride 106 mmol/L (98-107); Glucose 75 mg/dL (74-106); Potassium 3.9 mmol/L (3.5-5.1); Sodium 137 mmol/L (136-145)
[2023-08-26 15:18] LABS: Bilirubin, Total 0.4 mg/dL (0.2-1.0); Total Protein 8.1 g/dL (5.7-8.2)
[2023-08-26] MEDS ORDERED: ONDANSETRON HCL 4 MG/2 ML VIAL IV PRN (18:00)
[2023-08-26] MEDS ORDERED: PIPERACILLIN-TAZOB 3.375GM 100 ML IV SCH (18:00)
[2023-08-26] MEDS ORDERED: DEXTROSE (50%) 50ML SYRG IV PRN (18:00)
[2023-08-26] MEDS ORDERED: VANCOMYCIN PER PHARMACY 0 MG IV SCH (18:00)
[2023-08-26] MEDS: AMITRIPTYLINE HCL 25 MG TAB PO SCH (18:00)
[2023-08-26 21:30] VITALS: PULSE 96; RESP 17; O2SAT 96
[2023-08-26] MEDS: VANCOMYCIN 1GM/200ML 200 ML IV ONE (21:49)
[2023-08-26] MEDS: SODIUM CHLORIDE 0.9% 1,000 ML IV ONE (21:49)
[2023-08-26] MEDS: CYCLOSPORINE EACHEYE SCH (22:00)
[2023-08-26] MEDS: ECONAZOLE NITRATE TOP SCH (22:00)
[2023-08-26] MEDS: METOPROLOL TARTRATE 25 MG TAB PO SCH (22:25)
[2023-08-26] MEDS: GABAPENTIN 300 MG CAP PO SCH (22:25)
[2023-08-26] MEDS: InsuLIN REG 1unit/0.01ml Soln (100units/ml) SC SCH (22:26)
[2023-08-26] MEDS: ACCU-CHEK COMFORT CURVE STRIP VI SCH (22:27)
[2023-08-27] VITALS (7 sets, daily range): BP systolic 97–149; BP diastolic 55–88; PULSE 88–98; RESP 18–22; TEMP 98.1–99.8; O2SAT 96–99
[2023-08-27] MEDS: MORPHINE SULFATE INJ 2 MG/ml SYRG IV PRN (00:04)
[2023-08-27] MEDS: CEFEPIME 2GM/50ML NS 50 ML IV SCH ×2 (04:14→15:13)
[2023-08-27 07:07] LABS: Urine Bacteria None Seen /hpf (None Seen)
[2023-08-27 07:17] LABS: Basophils # (auto) 0 10 ^3/uL (0-0.2); Eosinophils # (auto) 0.1 10 ^3/uL (0-0.8); Hemoglobin 9.6 g/dL (13.5-17.5); Monocytes # (auto) 1.3 10 ^3/uL (0-1.3); Red Cell Distribution Width 14.9 % (11.8-14.3)
[2023-08-27 07:20] LABS: Basophils % (auto) 0.3 % (0.0-2.0); Eosinophils % (auto) 1.1 % (0.0-7.0); Hematocrit 29.6 % (41.0-53.0); Lymphocytes % (auto) 16.2 % (10.0-50.0); Mean Corpuscular Hemoglobin 26.3 pg (28.0-32.0); Mean Corpuscular Hgb Conc. 32.3 g/dL (32.0-36.0); Mean Corpuscular Volume 81.4 fL (80.0-100.0); Monocytes % (auto) 10.9 % (0.0-12.0); Neutrophils # (auto) 8.7 10 ^3/uL (1.6-8.6); Neutrophils % (auto) 71.5 % (37.0-80.0); Red Blood Cells 3.63 10^6/uL (4.5-5.90); White Blood Cell 12.2 10^3/uL (4.4-10.8)
[2023-08-27 07:28] LABS: Urine Blood Negative /uL (Negative); Urine Clarity Clear (Clear); Urine Color Yellow (Yellow); Urine Mucus FEW (None Seen); Urine Protein, UAD TRACE (Negative); Urine Specific Gravity 1.022 (1.001-1.035); Urine Urobilinogen Normal (Negative); Urine WBC 6 /hpf (0 - 3)
[2023-08-27 07:29] LABS: Albumin 3.3 g/dL (3.2-4.8); Alkaline Phosphatase 226 U/L (46-116); Anion Gap 8 (5-15); Aspartate Aminotransferase 9 U/L (13-40); BUN/Creatinine Ratio 18.9 (10.0-20.0); Bilirubin, Total 0.3 mg/dL (0.2-1.0); Blood Urea Nitrogen 25 mg/dL (9-23); Calcium 8.5 mg/dL (8.5-10.1); Carbon Dioxide 22 mmol/L (20-30); Chloride 108 mmol/L (98-107); Glucose 91 mg/dL (74-106); Potassium 3.9 mmol/L (3.5-5.1); Sodium 138 mmol/L (136-145); Total Protein 6.6 g/dL (5.7-8.2)
[2023-08-27 07:30] LABS: Alanine Aminotransferase < 9 U/L (7-40)
[2023-08-27] MEDS: PIPERACILLIN-TAZOB 3.375GM 100 ML IV ONE (07:45)
[2023-08-27] MEDS: ENOXAPARIN SOD 40 MG/0.4 ML SYRINGE SC SCH (07:45)
[2023-08-27] MEDS ORDERED: VANCOMYCIN PER PHARMACY 0 MG IV SCH (09:15)
[2023-08-27] MEDS: VANCOMYCIN 1GM/200ML 200 ML IV SCH (09:20)
[2023-08-27] MEDS: ASPirin-EC 81 mg tab PO SCH (09:23)
[2023-08-27] MEDS: PANTOPRAZOLE 40 MG TAB PO SCH (09:23)
[2023-08-27 09:24] LABS: Triglycerides 144 mg/dL (< 150)
[2023-08-27 09:25] LABS: LDL Cholesterol 70 mg/dL (< 100)
[2023-08-27 09:26] LABS: Cholesterol 124 mg/dL (< 200); HDL Cholesterol 22 mg/dL (40-59)
[2023-08-27] MEDS: amLODIPine BESYLATE 5 MG TAB PO SCH (09:32)
[2023-08-27] MEDS: ATORVASTATIN 20 MG TAB PO SCH (21:40)
[2023-08-28] VITALS (7 sets, daily range): BP systolic 99–143; BP diastolic 52–72; PULSE 77–96; RESP 17–18; TEMP 97.9–98.6; O2SAT 95–100
[2023-08-28 07:30] LABS: Basophils # (auto) 0 10 ^3/uL (0-0.2); Eosinophils # (auto) 0.1 10 ^3/uL (0-0.8); Hematocrit 29.3 % (41.0-53.0); Mean Corpuscular Hemoglobin 26.8 pg (28.0-32.0); Monocytes # (auto) 1.1 10 ^3/uL (0-1.3)
[2023-08-28 07:33] LABS: Basophils % (auto) 0.4 % (0.0-2.0); Eosinophils % (auto) 1.1 % (0.0-7.0); Hemoglobin 9.7 g/dL (13.5-17.5); Lymphocytes # (auto) 1.8 10 ^3/uL (0.4-5.4); Lymphocytes % (auto) 16.6 % (10.0-50.0); Mean Corpuscular Volume 81.3 fL (80.0-100.0); Monocytes % (auto) 10.5 % (0.0-12.0); Neutrophils # (auto) 7.8 10 ^3/uL (1.6-8.6); Neutrophils % (auto) 71.4 % (37.0-80.0); Red Cell Distribution Width 14.9 % (11.8-14.3); White Blood Cell 10.9 10^3/uL (4.4-10.8)
[2023-08-28 07:43] LABS: Alanine Aminotransferase 11 U/L (7-40); Albumin 3.2 g/dL (3.2-4.8); Alkaline Phosphatase 242 U/L (46-116); Anion Gap 8 (5-15); Aspartate Aminotransferase < 8 U/L (13-40); BUN/Creatinine Ratio 19.2 (10.0-20.0); Blood Urea Nitrogen 25 mg/dL (9-23); Calcium 8.6 mg/dL (8.7-10.4); Carbon Dioxide 22 mmol/L (20-30); Chloride 108 mmol/L (98-107); Glucose 138 mg/dL (74-106); Potassium 4.1 mmol/L (3.5-5.1); Sodium 138 mmol/L (136-145)
[2023-08-28 07:44] LABS: Bilirubin, Total 0.4 mg/dL (0.2-1.0); Total Protein 6.5 g/dL (5.7-8.2)
[2023-08-28] MEDS: [UNRECOGNIZED DRUG - OTHER] PO SCH (10:00)
[2023-08-28] MEDS: B COMPLEX PO SCH (10:00)
[2023-08-28] MEDS: FOLIC ACID PO SCH ×2 (10:00)
[2023-08-28] MEDS: CHOLECALCIFEROL PO SCH (10:00)
[2023-08-28] MEDS: ROPIVACAINE 0.5% (5MG/ML) 20ML AMPULE IJ ONE (10:11)
[2023-08-28] MEDS: ASPirin 81 mg TAB PO SCH (12:19)
[2023-08-28] MEDS: VANCOMYCIN 1GM/200ML 200 ML IV SCH (16:43)
[2023-08-29 01:00] VITALS: BP 112/59; PULSE 71; RESP 17; TEMP 98.3; O2SAT 100
[2023-08-29 05:00] VITALS: BP 140/77; PULSE 84; RESP 18; TEMP 98.6; O2SAT 95
[2023-08-29 06:57] LABS: Alkaline Phosphatase 237 U/L (46-116); Anion Gap 8 (5-15); BUN/Creatinine Ratio 20.3 (10.0-20.0); Blood Urea Nitrogen 24 mg/dL (9-23); Calcium 8.8 mg/dL (8.7-10.4); Carbon Dioxide 20 mmol/L (20-30); Chloride 109 mmol/L (98-107); Glucose 137 mg/dL (74-106); Potassium 4.2 mmol/L (3.5-5.1); Sodium 137 mmol/L (136-145)
[2023-08-29 06:58] LABS: Albumin 3.3 g/dL (3.2-4.8); Aspartate Aminotransferase < 8 U/L (13-40)
[2023-08-29 06:59] LABS: Basophils # (auto) 0 10 ^3/uL (0-0.2); Basophils % (auto) 0.3 % (0.0-2.0); Bilirubin, Total 0.3 mg/dL (0.2-1.0); Eosinophils # (auto) 0.2 10 ^3/uL (0-0.8); Eosinophils % (auto) 1.7 % (0.0-7.0); Hematocrit 30.9 % (41.0-53.0); Hemoglobin 10.1 g/dL (13.5-17.5); Lymphocytes # (auto) 1.8 10 ^3/uL (0.4-5.4); Lymphocytes % (auto) 20.2 % (10.0-50.0); Mean Corpuscular Hemoglobin 26.5 pg (28.0-32.0); Mean Corpuscular Hgb Conc. 32.6 g/dL (32.0-36.0); Mean Corpuscular Volume 81.3 fL (80.0-100.0); Monocytes # (auto) 0.9 10 ^3/uL (0-1.3); Monocytes % (auto) 10.3 % (0.0-12.0); Neutrophils # (auto) 5.9 10 ^3/uL (1.6-8.6); Neutrophils % (auto) 67.5 % (37.0-80.0); Total Protein 6.5 g/dL (5.7-8.2); White Blood Cell 8.7 10^3/uL (4.4-10.8)
[2023-08-29 07:00] LABS: Alanine Aminotransferase < 9 U/L (7-40)
[2023-08-29 09:00] VITALS: BP 116/70; PULSE 56; RESP 18; TEMP 98.7; O2SAT 98
[2023-08-29] MEDS: CLOPIDOGREL BISULFATE 75 MG TAB PO ONE (13:50)
[2023-08-29] MEDS: FUROSEMIDE 20 MG TAB PO ONE (13:51)
[2023-08-29 17:00] VITALS: BP 98/69; PULSE 80; RESP 20; TEMP 97.9; O2SAT 97
[2023-08-29 21:09] VITALS: BP 116/62; PULSE 74; RESP 18; TEMP 98.1; O2SAT 96
[2023-08-29] MEDS: METOPROLOL TARTRATE 25 MG TAB PO SCH (22:13)
[2023-08-29] MEDS: SACUBITRIL-VALSARTAN 24mg/26mg TAB PO SCH (22:13)
[2023-08-30] VITALS (13 sets, daily range): BP systolic 115–154; BP diastolic 56–91; PULSE 73–95; RESP 14–95; TEMP 97.3–98.3; O2SAT 95–99
[2023-08-30 05:03] LABS: Basophils # (auto) 0.1 10 ^3/uL (0-0.2); Basophils % (auto) 0.6 % (0.0-2.0); Eosinophils # (auto) 0.1 10 ^3/uL (0-0.8); Eosinophils % (auto) 1.6 % (0.0-7.0); Lymphocytes # (auto) 1.9 10 ^3/uL (0.4-5.4); Nucleated Red Blood Cells % 0.1 %
[2023-08-30 05:06] LABS: Hematocrit 29.9 % (41.0-53.0); Hemoglobin 9.8 g/dL (13.5-17.5); Lymphocytes % (auto) 21.7 % (10.0-50.0); Mean Corpuscular Hemoglobin 26.4 pg (28.0-32.0); Mean Corpuscular Hgb Conc. 32.7 g/dL (32.0-36.0); Mean Corpuscular Volume 80.8 fL (80.0-100.0); Monocytes # (auto) 0.8 10 ^3/uL (0-1.3); Monocytes % (auto) 9.3 % (0.0-12.0); Neutrophils # (auto) 5.8 10 ^3/uL (1.6-8.6); Neutrophils % (auto) 66.8 % (37.0-80.0); Red Cell Distribution Width 15.2 % (11.8-14.3); White Blood Cell 8.7 10^3/uL (4.4-10.8)
[2023-08-30 05:13] LABS: Alanine Aminotransferase 12 U/L (7-40); Albumin 3.2 g/dL (3.2-4.8); Alkaline Phosphatase 254 U/L (46-116); Anion Gap 7 (5-15); Aspartate Aminotransferase 11 U/L (13-40); BUN/Creatinine Ratio 22.4 (10.0-20.0); Blood Urea Nitrogen 28 mg/dL (9-23); Calcium 8.6 mg/dL (8.7-10.4); Carbon Dioxide 21 mmol/L (20-30); Chloride 110 mmol/L (98-107); Glucose 141 mg/dL (74-106); Magnesium 2.1 mg/dL (1.6-2.6); Potassium 4.5 mmol/L (3.5-5.1); Sodium 138 mmol/L (136-145)
[2023-08-30 05:14] LABS: Bilirubin, Total 0.2 mg/dL (0.2-1.0); Phosphorus 3.7 mg/dL (2.4-5.1); Total Protein 6.6 g/dL (5.7-8.2)
[2023-08-30 05:17] LABS: INR 1.15 (0.9-1.15); Partial Thromboplastin Time 32.1 SEC (24.5-34.5); Prothrombin Time 12.1 sec (9.3-11.8)
[2023-08-30] MEDS: SPIRONOLACTONE 25 MG TAB PO SCH (09:40)
[2023-08-30] MEDS: FUROSEMIDE 20 MG TAB PO SCH (09:40)
[2023-08-30] MEDS: CLOPIDOGREL BISULFATE 75 MG TAB PO SCH (09:42)
[2023-08-30] MEDS: EMPAGLIFLOZIN 10 MG TAB PO SCH (09:44)
[2023-08-30] MEDS: IODIXANOL 320MG/ML 100ML BTL IV ONE (15:15)
[2023-08-30] MEDS: LIDOCAINE 2%HCL (LOCAL ANESTH.) INJ 20ML MDV ONE (15:15)
[2023-08-30] MEDS: ANGIOMAX 250 MG VIAL IV ONE ×2 (15:19→17:22)
[2023-08-30] MEDS: fentaNYL CITRATE 100 MCG/2 ML VL ONE ×2 (15:20→17:07)
[2023-08-30] MEDS: MIDAZOLAM HCL 2MG/2ML 2ml VIAL (1mg/ml) ONE (15:20)
[2023-08-30] MEDS: SODIUM CHL 0.9% 50 ML ONE ×2 (15:20→17:22)
[2023-08-30] MEDS: VANCOMYCIN 1GM/200ML 200 ML IV SCH (20:22)
[2023-08-31] VITALS (8 sets, daily range): BP systolic 94–123; BP diastolic 56–76; PULSE 85–98; RESP 15–20; TEMP 97.1–98.4; O2SAT 95–98
[2023-08-31 06:15] LABS: Basophils # (auto) 0 10 ^3/uL (0-0.2); Hemoglobin 10.3 g/dL (13.5-17.5); Lymphocytes # (auto) 1.7 10 ^3/uL (0.4-5.4); Monocytes # (auto) 0.9 10 ^3/uL (0-1.3); White Blood Cell 10.2 10^3/uL (4.4-10.8)
[2023-08-31 06:17] LABS: Basophils % (auto) 0.4 % (0.0-2.0); Eosinophils # (auto) 0.1 10 ^3/uL (0-0.8); Eosinophils % (auto) 1.4 % (0.0-7.0); Hematocrit 31.3 % (41.0-53.0); Lymphocytes % (auto) 17.1 % (10.0-50.0); Mean Corpuscular Hemoglobin 26.9 pg (28.0-32.0); Mean Corpuscular Volume 81.7 fL (80.0-100.0); Monocytes % (auto) 8.7 % (0.0-12.0); Neutrophils # (auto) 7.4 10 ^3/uL (1.6-8.6); Neutrophils % (auto) 72.4 % (37.0-80.0); Red Blood Cells 3.83 10^6/uL (4.5-5.90)
[2023-08-31 08:06] LABS: Albumin 3.3 g/dL (3.2-4.8); Alkaline Phosphatase 268 U/L (46-116); Anion Gap 7 (5-15); Aspartate Aminotransferase 16 U/L (13-40); BUN/Creatinine Ratio 23.6 (10.0-20.0); Bilirubin, Total 0.2 mg/dL (0.2-1.0); Blood Urea Nitrogen 25 mg/dL (9-23); Calcium 8.9 mg/dL (8.5-10.1); Carbon Dioxide 20 mmol/L (20-30); Chloride 111 mmol/L (98-107); Glucose 141 mg/dL (74-106); Potassium 4.5 mmol/L (3.5-5.1); Sodium 138 mmol/L (136-145); Total Protein 6.8 g/dL (5.7-8.2)
[2023-08-31 08:07] LABS: Alanine Aminotransferase < 9 U/L (7-40)
[2023-08-31] MEDS ORDERED: INSU100I54 SC (10:42)
[2023-08-31] MEDS ORDERED: DAPA1TAB4 PO (10:42)
[2023-08-31] MEDS ORDERED: ATOR40TA52 PO (10:42)
[2023-08-31] MEDS ORDERED: FAMO20TA10 PO (10:42)
[2023-08-31] MEDS ORDERED: SACU1TAB PO (10:42)
[2023-08-31] MEDS ORDERED: CLOP75TA70 PO (10:42)
[2023-08-31] MEDS ORDERED: INSU1INJ19 SC (10:42)
[2023-08-31] MEDS ORDERED: CARV12.544 PO (10:42)
[2023-08-31] MEDS ORDERED: GABA-1250 PO (10:42)
[2023-08-31] MEDS: DOCUSATE SOD 100 MG CAP PO PRN (14:04)
[2023-08-31] MEDS: VANCOMYCIN 1GM/200ML 200 ML IV SCH (18:02)
[2023-08-31] MEDS: ATORVASTATIN 20 MG TAB PO SCH (21:44)
[2023-09-01] VITALS (8 sets, daily range): BP systolic 97–121; BP diastolic 58–67; PULSE 79–95; RESP 18–80; TEMP 97.2–98.8; O2SAT 93–100
[2023-09-01] MEDS: LIDOCAINE 2% JELLY 11ml (GLYDO) ONE (06:42)
[2023-09-01] MEDS: ROPIVACAINE 0.5% (5MG/ML) 20ML AMPULE IJ ONE (06:42)
[2023-09-01] MEDS ORDERED: KETAMINE 50mg/ML 1ml syringe ONE (06:59)
[2023-09-01] MEDS ORDERED: SODIUM CHLORIDE LOCK 10 ML ONE (06:59)
[2023-09-01] MEDS ORDERED: fentaNYL CITRATE 100 MCG/2 ML VL ONE (06:59)
[2023-09-01] MEDS ORDERED: MEPERIDINE HCL (50 MG/ML) 1 ML VIAL ONE (06:59)
[2023-09-01] MEDS ORDERED: PROPOFOL 10 MG/ML 20 ML IV ONE (06:59)
[2023-09-01] MEDS ORDERED: MIDAZOLAM HCL 2MG/2ML 2ml VIAL (1mg/ml) ONE (06:59)
[2023-09-01] MEDS ORDERED: ONDANSETRON HCL 4 MG/2 ML VIAL ONE (06:59)
[2023-09-01] MEDS ORDERED: LIDOCAINE 1% INJ PF 5ML AMP ONE (07:01)
[2023-09-01] MEDS: METOCLOPRAMIDE HCL 5MG/ml INJ 2ml VIAL IV ONE (07:45)
[2023-09-01] MEDS ORDERED: HYDROmorphone HCL 2 MG/ML VL/or syr IV PRN ×2 (07:45)
[2023-09-01] MEDS ORDERED: MORPHINE SULFATE INJ 2 MG/ml SYRG IV PRN (07:45)
[2023-09-01] MEDS: KETOROLAC TROMETH 30 MG/ML 1ML VIAL IV ONE (07:45)
[2023-09-01] MEDS: ceFAZolin 1GM VL ONE (08:00)
[2023-09-01 11:26] LABS: Basophils # (auto) 0 10 ^3/uL (0-0.2); White Blood Cell 10.1 10^3/uL (4.4-10.8)
[2023-09-01 11:28] LABS: Basophils % (auto) 0.4 % (0.0-2.0); Eosinophils # (auto) 0.2 10 ^3/uL (0-0.8); Eosinophils % (auto) 1.8 % (0.0-7.0); Hematocrit 29.8 % (41.0-53.0); Hemoglobin 9.5 g/dL (13.5-17.5); Lymphocytes # (auto) 1.8 10 ^3/uL (0.4-5.4); Lymphocytes % (auto) 17.9 % (10.0-50.0); Mean Corpuscular Hemoglobin 26.5 pg (28.0-32.0); Mean Corpuscular Volume 82.9 fL (80.0-100.0); Monocytes # (auto) 0.9 10 ^3/uL (0-1.3); Monocytes % (auto) 9.4 % (0.0-12.0); Neutrophils # (auto) 7.2 10 ^3/uL (1.6-8.6); Neutrophils % (auto) 70.5 % (37.0-80.0); Red Cell Distribution Width 15.1 % (11.8-14.3)
[2023-09-01 11:34] LABS: Anion Gap 9 (5-15); Calcium 8.7 mg/dL (8.5-10.1); Carbon Dioxide 19 mmol/L (20-30); Chloride 110 mmol/L (98-107); Potassium 4.6 mmol/L (3.5-5.1); Sodium 138 mmol/L (136-145)
[2023-09-01 11:40] LABS: BUN/Creatinine Ratio 20.9 (10.0-20.0); Blood Urea Nitrogen 28 mg/dL (9-23); Glucose 130 mg/dL (74-106)
[2023-09-02 01:00] VITALS: BP 101/54; PULSE 93; RESP 18; TEMP 98.5; O2SAT 95
[2023-09-02 05:00] VITALS: BP 102/53; PULSE 94; RESP 18; TEMP 97.9; O2SAT 92
[2023-09-02 06:55] LABS: Basophils # (auto) 0 10 ^3/uL (0-0.2); Hemoglobin 8.7 g/dL (13.5-17.5); White Blood Cell 9.4 10^3/uL (4.4-10.8)
[2023-09-02 06:56] LABS: Basophils % (auto) 0.4 % (0.0-2.0); Eosinophils # (auto) 0.1 10 ^3/uL (0-0.8); Eosinophils % (auto) 1.5 % (0.0-7.0); Lymphocytes # (auto) 2.1 10 ^3/uL (0.4-5.4); Lymphocytes % (auto) 22.8 % (10.0-50.0); Mean Corpuscular Hemoglobin 26.5 pg (28.0-32.0); Mean Corpuscular Hgb Conc. 31.1 g/dL (32.0-36.0); Monocytes % (auto) 11.1 % (0.0-12.0); Neutrophils % (auto) 64.2 % (37.0-80.0); Nucleated Red Blood Cells % 0.2 %; Red Blood Cells 3.29 10^6/uL (4.5-5.90); Red Cell Distribution Width 15.7 % (11.8-14.3)
[2023-09-02 07:02] LABS: Chloride 109 mmol/L (98-107); Potassium 4.6 mmol/L (3.5-5.1); Sodium 136 mmol/L (136-145)
[2023-09-02 07:03] LABS: Anion Gap 9 (5-15); Carbon Dioxide 18 mmol/L (20-30)
[2023-09-02 07:08] LABS: Glucose 134 mg/dL (74-106)
[2023-09-02 07:09] LABS: BUN/Creatinine Ratio 17.7 (10.0-20.0); Blood Urea Nitrogen 28 mg/dL (9-23)
[2023-09-02 08:30] VITALS: BP 97/56; PULSE 95; RESP 18; TEMP 98.5; O2SAT 96
[2023-09-02 12:30] VITALS: BP 99/65; PULSE 90; RESP 20; TEMP 97.8; O2SAT 97
[2023-09-02] MEDS: LINEZOLID 600MG/300ML 300 ML IV ONE (13:10)
[2023-09-02 16:25] VITALS: BP 122/65; PULSE 87; RESP 18; TEMP 97.6; O2SAT 97
[2023-09-02] MEDS: CEFEPIME 2GM/50ML NS 50 ML IV SCH (18:32)
[2023-09-02 21:00] VITALS: BP 124/71; PULSE 87; RESP 18; TEMP 97.5; O2SAT 97
[2023-09-02] MEDS: LINEZOLID 600MG/300ML 300 ML IV SCH (22:05)
[2023-09-03] VITALS (8 sets, daily range): BP systolic 109–124; BP diastolic 52–71; PULSE 58–97; RESP 16–20; TEMP 36.5; O2SAT 92–99
[2023-09-03 07:51] LABS: Basophils # (auto) 0.1 10 ^3/uL (0-0.2); Eosinophils # (auto) 0.2 10 ^3/uL (0-0.8); Hemoglobin 7.4 g/dL (13.5-17.5); Red Blood Cells 2.79 10^6/uL (4.5-5.90); Red Cell Distribution Width 15.3 % (11.8-14.3); White Blood Cell 8.6 10^3/uL (4.4-10.8)
[2023-09-03 07:53] LABS: Basophils % (auto) 0.7 % (0.0-2.0); Eosinophils % (auto) 2.2 % (0.0-7.0); Hematocrit 22.4 % (41.0-53.0); Lymphocytes # (auto) 2.3 10 ^3/uL (0.4-5.4); Lymphocytes % (auto) 26.3 % (10.0-50.0); Mean Corpuscular Hemoglobin 26.4 pg (28.0-32.0); Mean Corpuscular Hgb Conc. 32.8 g/dL (32.0-36.0); Mean Corpuscular Volume 80.6 fL (80.0-100.0); Monocytes % (auto) 11.3 % (0.0-12.0); Neutrophils # (auto) 5.1 10 ^3/uL (1.6-8.6); Neutrophils % (auto) 59.5 % (37.0-80.0)
[2023-09-03 07:57] LABS: Chloride 109 mmol/L (98-107); Potassium 4.8 mmol/L (3.5-5.1); Sodium 137 mmol/L (136-145)
[2023-09-03 07:58] LABS: Anion Gap 6 (5-15); Calcium 8.9 mg/dL (8.5-10.1); Carbon Dioxide 22 mmol/L (20-30)
[2023-09-03 08:03] LABS: Blood Urea Nitrogen 33 mg/dL (9-23); Glucose 137 mg/dL (74-106)
[2023-09-03] MEDS: Juven Orange Powder PACKET 27.5gm PO SCH (10:00)
[2023-09-04] VITALS (7 sets, daily range): BP systolic 104–139; BP diastolic 62–78; PULSE 58–115; RESP 15–20; TEMP 36.8; O2SAT 93–100
[2023-09-04 06:17] LABS: Basophils # (auto) 0 10 ^3/uL (0-0.2); Eosinophils # (auto) 0.1 10 ^3/uL (0-0.8); Hematocrit 25.5 % (41.0-53.0); Monocytes # (auto) 0.8 10 ^3/uL (0-1.3)
[2023-09-04 06:22] LABS: Basophils % (auto) 0.5 % (0.0-2.0); Hemoglobin 8.3 g/dL (13.5-17.5); Lymphocytes # (auto) 2.1 10 ^3/uL (0.4-5.4); Lymphocytes % (auto) 29.8 % (10.0-50.0); Mean Corpuscular Hemoglobin 26.7 pg (28.0-32.0); Mean Corpuscular Hgb Conc. 32.7 g/dL (32.0-36.0); Mean Corpuscular Volume 81.7 fL (80.0-100.0); Neutrophils % (auto) 56.7 % (37.0-80.0); Red Blood Cells 3.12 10^6/uL (4.5-5.90); Red Cell Distribution Width 14.9 % (11.8-14.3); White Blood Cell 7.1 10^3/uL (4.4-10.8)
[2023-09-04 06:34] LABS: Chloride 108 mmol/L (98-107); Potassium 4.7 mmol/L (3.5-5.1); Sodium 136 mmol/L (136-145)
[2023-09-04 06:35] LABS: Anion Gap 6 (5-15); Carbon Dioxide 22 mmol/L (20-30)
[2023-09-04 06:40] LABS: BUN/Creatinine Ratio 17.8 (10.0-20.0); Blood Urea Nitrogen 27 mg/dL (9-23); Glucose 162 mg/dL (74-106)
[2023-09-05 05:00] VITALS: BP 122/64; PULSE 85; RESP 22; TEMP 98; O2SAT 100
[2023-09-05 13:00] VITALS: BP 108/58; PULSE 78; RESP 78; TEMP 98.6; O2SAT 100
[2023-09-05 17:00] VITALS: BP 105/75; PULSE 50; RESP 18; TEMP 98.7; O2SAT 98
[2023-09-05] MEDS: DOCUSATE SOD 100 MG CAP PO ONE (18:47)
[2023-09-05] MEDS: LACTULOSE 20Gm/30ML SOLN PO ONE (18:47)
[2023-09-05 21:00] VITALS: BP 109/58; PULSE 87; RESP 20; TEMP 97.8; O2SAT 97
[2023-09-05] MEDS: LACTULOSE 20Gm/30ML SOLN PO SCH (22:00)
[2023-09-05] MEDS: DOCUSATE SOD 100 MG CAP PO SCH (22:18)
[2023-09-06] VITALS (7 sets, daily range): BP systolic 102–134; BP diastolic 65–79; PULSE 72–92; RESP 16–72; TEMP 36.7; O2SAT 93–99
[2023-09-06] MEDS: HYDROcodone-ACET 5/325MG TAB PO PRN (01:05)
[2023-09-06 08:04] LABS: Basophils # (auto) 0 10 ^3/uL (0-0.2); Basophils % (auto) 0.6 % (0.0-2.0); Eosinophils # (auto) 0.2 10 ^3/uL (0-0.8); Eosinophils % (auto) 2.3 % (0.0-7.0); Hematocrit 27.5 % (41.0-53.0); Hemoglobin 9.1 g/dL (13.5-17.5); Lymphocytes # (auto) 2.1 10 ^3/uL (0.4-5.4); Lymphocytes % (auto) 31.3 % (10.0-50.0); Mean Corpuscular Hemoglobin 27.1 pg (28.0-32.0); Mean Corpuscular Hgb Conc. 33.1 g/dL (32.0-36.0); Mean Corpuscular Volume 81.7 fL (80.0-100.0); Monocytes # (auto) 0.7 10 ^3/uL (0-1.3); Neutrophils # (auto) 3.7 10 ^3/uL (1.6-8.6); Neutrophils % (auto) 55.8 % (37.0-80.0); Red Blood Cells 3.36 10^6/uL (4.5-5.90); Red Cell Distribution Width 15.2 % (11.8-14.3); White Blood Cell 6.7 10^3/uL (4.4-10.8)
[2023-09-06 08:35] LABS: Alanine Aminotransferase 17 U/L (7-40); Albumin 3.5 g/dL (3.2-4.8); Alkaline Phosphatase 286 U/L (46-116); Anion Gap 6 (5-15); Aspartate Aminotransferase 21 U/L (13-40); BUN/Creatinine Ratio 16.3 (10.0-20.0); Blood Urea Nitrogen 23 mg/dL (9-23); Calcium 9.2 mg/dL (8.5-10.1); Carbon Dioxide 22 mmol/L (20-30); Chloride 108 mmol/L (98-107); Glucose 138 mg/dL (74-106); Potassium 4.8 mmol/L (3.5-5.1); Sodium 136 mmol/L (136-145)
[2023-09-06 08:36] LABS: Bilirubin, Total 0.2 mg/dL (0.2-1.0); Total Protein 7.1 g/dL (5.7-8.2)
[2023-09-06 13:48] LABS: INR 1.21 (0.9-1.15); Partial Thromboplastin Time 32.5 SEC (24.5-34.5); Prothrombin Time 12.6 sec (9.3-11.8)
[2023-09-06] MEDS: LIDOCAINE 1% (LOCAL ANESTH.) PF 5ml SDV ID ONE (15:00)
[2023-09-06] MEDS: SODIUM CHLOR 0.9% PF (SALINE LOCK) 10ML VIAL/SYR IV SCH (21:54)
[2023-09-07 01:00] VITALS: BP 109/66; PULSE 71; RESP 14; TEMP 98.3; O2SAT 98
[2023-09-07 07:17] LABS: Anion Gap 7 (5-15); Calcium 9.5 mg/dL (8.5-10.1); Carbon Dioxide 23 mmol/L (20-30); Chloride 106 mmol/L (98-107); Potassium 4.8 mmol/L (3.5-5.1); Sodium 136 mmol/L (136-145)
[2023-09-07 07:23] LABS: BUN/Creatinine Ratio 19.3 (10.0-20.0); Blood Urea Nitrogen 28 mg/dL (9-23); Glucose 170 mg/dL (74-106)
[2023-09-07 09:00] VITALS: BP 119/65; PULSE 83; RESP 16; TEMP 97.7; O2SAT 98
[2023-09-07 12:47] VITALS: BP 117/71; PULSE 82; RESP 16; TEMP 98.4; O2SAT 96
[2023-09-07 17:00] VITALS: BP 112/69; PULSE 73; RESP 18; TEMP 98; O2SAT 98
== END 2023-09-07 20:10 | DRG 629 ==
LOC: ER 12:17 → WEST WING 17:59 → OVERFLOW 17:59 → WEST WING 23:25
PROVIDERS: ADMIT Internal Medicine; ATTEND Internal Medicine
PROC: B41G1ZZ Fluoroscopy of Left Lower Extremity Arteries using Low Osmolar Contrast (ICD-10-PCS; principal; 2023-08-30)
PROC: 0QBM0ZZ Excision of Left Tarsal, Open Approach (ICD-10-PCS; 2023-09-01)
PROC: 02HV33Z Insertion of Infusion Device into Superior Vena Cava, Percutaneous Approach (ICD-10-PCS; 2023-09-06)
PROC: B548ZZA Ultrasonography of Superior Vena Cava, Guidance (ICD-10-PCS; 2023-09-06)
DX: E11.621 Type 2 diabetes mellitus with foot ulcer (principal); I13.0 Hypertensive heart and chronic kidney disease with heart failure and stage 1 through stage 4 chronic kidney disease, or unspecified chronic kidney disease; M86.172 Other acute osteomyelitis, left ankle and foot; I50.22 Chronic systolic (congestive) heart failure; L97.429 Non-pressure chronic ulcer of left heel and midfoot with unspecified severity; L03.116 Cellulitis of left lower limb; E11.69 Type 2 diabetes mellitus with other specified complication; N17.0 Acute kidney failure with tubular necrosis; D72.829 Elevated white blood cell count, unspecified; D63.8 Anemia in other chronic diseases classified elsewhere; E78.5 Hyperlipidemia, unspecified; I25.10 Atherosclerotic heart disease of native coronary artery without angina pectoris; I25.5 Ischemic cardiomyopathy; E11.51 Type 2 diabetes mellitus with diabetic peripheral angiopathy without gangrene; K59.00 Constipation, unspecified; L97.529 Non-pressure chronic ulcer of other part of left foot with unspecified severity; N18.30 Chronic kidney disease, stage 3 unspecified; E11.22 Type 2 diabetes mellitus with diabetic chronic kidney disease; E66.9 Obesity, unspecified; Z68.30 Body mass index [BMI] 30.0-30.9, adult; Z89.511 Acquired absence of right leg below knee; Z79.4 Long term (current) use of insulin; Z83.3 Family history of diabetes mellitus; Z87.891 Personal history of nicotine dependence
CPT/HCPCS: 36415; 36569; 71045; 73700; 73718; 80048; 80053; 80061; 80202; 81001; 82565; 82962; 83036; 83605; 83735; 83880; 84100; 85025; 85610; 85730; 87040; 87070; 87075; 87077; 87081; 87186; 87205; 93005; 93306; 93925; 97163; 99152; C1769; C1894; G0378; J0690; J0692; J1815; J2250; J2405; J2704; Q9967